=== PATIENT | male | born 1965 | race Caucasian/White ===

== ENCOUNTER 2018-06-10 14:39 | Inpatient (IN) ==
[2018-06-10] MEDS ORDERED: MIDAZOLAM HCL 1 MG/ML 2ML VIAL ONE (14:51)
[2018-06-10] MEDS ORDERED: fentaNYL citrate 100 MCG/2 ML VIAL ONE (14:51)
[2018-06-10] MEDS ORDERED: HEPARIN (PORCINE) 1000 UNIT/ML 10 ML (CATH LAB USE ONLY) ONE (14:52)
[2018-06-10] MEDS ORDERED: NITROGLYCERIN/D5W 100MCG/ML 20ML SYR ONE (14:52)
[2018-06-10] MEDS ORDERED: NiCARDipine HCL INJ 2.5 MG/ML 10 ML AMP ONE (14:52)
[2018-06-10] MEDS ORDERED: SODIUM CHLORIDE 0.9% 500 ML IV SCH (15:00)
[2018-06-10] MEDS ORDERED: HEPARIN SOD (PORCINE) 1000 UNIT/ML 10 ML VIAL ONE (15:00)
[2018-06-10] MEDS ORDERED: TICAGRELOR 90 MG TAB PO ONE (15:00)
--- NOTE | 2018-06-10 15:06 | Pre Anesthesia Assessment ---
Date of Service June 10, 2018 Pre Sedation Assessment Vital Signs Temp Pulse Resp BP Pulse Ox 06/10/18 14:42 36.4 C L 85 20 181/111 H 98 Cardiovascular RRR, no murmur, no edema Respiratory normal respiratory effort, lungs clear to auscultation Pre-Sedation Airway Assessment Smoking Status: Current every day smoker Hx Sleep Apnea: No Hx Difficult Intubation: No Short, Thick Neck: No Thyromental Distance: > or= 3.5 Finger Breadths Oral Cavity: + WNL Mallampati Class: III Procedure Planning Contraindications for Sedation: none Current Medications Reviewed: Yes Notes The planned sedation has been discussed with the patient. Informed Consent was obtained. I have identified the patient, determined the appropriateness of sedation and have assessed the patient immediately prior to the procedure. All medicine(s) and interventions are by my order.
--- NOTE | 2018-06-10 15:09 | Cardiology Consultation ---
Date of Consultation June 10, 2018 Assessment & Plan (1) ST elevation myocardial infarction (STEMI): Presentation consistent with inferior STEMI and recommend proceeding with emergent cardiac catheterization and likely primary PCI. No apparent contraindications to procedure. Discussed risks, benefits, alternatives of procedure with patient and they are willing to proceed. Given IV heparin and ticagrelor 180 mg in the ED. Further recommendations pending findings of coronary angiography. History of Present Illness History of Present Illness 53-year-old male here with acute chest pain and ECG concerning for acute KS. Patient seen emergently in the ED after heart alert activated upon arrival. Past cardiac history remarkable for reported cardiac catheterization several years ago on which reportedly had no significant disease. Cardiac risk factors include ongoing tobacco abuse, hyperlipidemia family history of premature coronary disease involving his father. Other medical issues include hypothyroidism but is on no meds. Chest pain began approximately 3.5 hours prior to arrival while at work. Describes 9 out of 10 chest pain radiating to his back, neck and left arm. Denies similar symptoms in the past. Also states that has not felt like himself for the last several days, just "feeling weak." Initially presented to urgent care with EKG showing inferior ST elevations. Brought to ED via coworker. Upon arrival here hypertensive to the 180s. EKG showed again showed sinus rhythm with inferior ST elevations. Allergies Allergy/AdvReac Type Severity Reaction Status Date / Time No Known Allergies Unverified 05/20/09 16:12 Home Medications Home Medications Medication Instructions Recorded Confirmed Type [id number] M1 20 mg OR DAILY #0 05/20/09 History Patient History Medical History HTN (hypertension) Social History Feels Safe at Home: Yes Smoking Status: Current every day smoker Review of Systems Not completed in the setting of emergent situation Physical Exam Vital Signs (Past 24 Hours): Last Vital Signs Temp 36.4 C L 06/10/18 14:42 Pulse 85 06/10/18 14:42 Resp 20 06/10/18 14:42 BP 181/111 H 06/10/18 14:42 Pulse Ox 98 06/10/18 14:55 Physical Exam: General: Comfortable, no acute distress Eyes: Sclerae anicteric, extraocular movements intact Lungs: Clear to auscultation bilaterally, no rhonchi or wheezes Cardiac: Regular rate and rhythm, no murmurs, rubs or gallops. Vascular: 2+ radial, DP and PT pulses. Abdomen: Soft, nontender, nondistended, positive bowel sounds. Extremities: Well perfused, no peripheral edema Skin: No rashes or lesions. Neuro: Nonfocal Psych: Alert orient x3, normal affect and mood (1) ST elevation myocardial infarction (STEMI) Involved coronary artery: unspecified coronary artery Qualified Code(s): I21.3 - ST elevation (STEMI) myocardial infarction of unspecified site
--- NOTE | 2018-06-10 15:14 | XRay Report ---
XR chest 1V portable HISTORY: 53 years-old Male Chest Pain acute atypical chest pain COMPARISON: Chest radiograph 05/20/2009 TECHNIQUE: Portable AP view of the chest FINDINGS: Cardiac mediastinal and hilar silhouettes are unchanged. There is no pneumothorax, pleural effusion, focal airspace consolidation or overt pulmonary edema. Bones of the chest appear grossly intact. IMPRESSION: No acute process. The above report was generated using voice recognition software. It may contain grammatical, syntax o r spelling errors. Electronically signed by: Kash Collins M.D. 06/10/2018 3:13 PM
[2018-06-10 15:16] LABS: iSTAT Creatinine 0.9 mg/dl (0.6-1.3); iSTAT Hemoglobin 14.6 g/dl (14.0-18.0); iSTAT Ionized Calcium 1.17 mmol/l (1.12-1.32); iSTAT Potassium 3.8 mEq/L (3.3-5.0)
--- NOTE | 2018-06-10 15:18 | Emergency Department Note ---
Entered by Elan Acosta acting as a scribe for History of Present Illness General Chief complaint: Cardiac Assessment Stated complaint: REFERRED BY [facility] - POSSIBLE HEART ATTACK Time Seen by Provider: 06/10/18 14:47 Source: patient Limitations: no limitations History of Present Illness Provider complaint: Chest pain Onset (ago): day(s) (2) Location: chest (left) Radiation: neck (left) and extremity (left arm) Pain Consistency: + intermittent Maximum Pain Intensity: 5 Current Pain Intensity: 1 Treatments prior to arrival: other (Aspirin) The patient is a 53 year old male who presents to the Emergency Room with complaints of intermittent chest pain that began at 1100 this morning, 3 hours and 45 minutes ago. The patient states that he first experienced chest pain on Sunday night, 2 days ago. The chest pain then presented again on Sunday morning, but resolved throughout the day. The patient got up and went to work today, and the pain returned at 1100, just under 4 hours ago. The patient had his boss take him to [employer], who performed an EKG and referred him to the ED immediately. They did give the patient Aspirin and sent him by private vehicle. He states that his pain is now 1/10 in severity. When the chest pain presents there is radiation in to the left arm and left neck. He adds that currently the left arm is more painful than the left neck. He has a history of hypertension, but no other cardiac disease. He had a clean cath in 2009. The patient's father of a heart attack at the age of 58. He denies any recent trauma. Home Medications Home Medications Medication Instructions Recorded Confirmed Type aspirin 81 mg PO DAILY 06/10/18 06/10/18 History metoprolol succinate [Toprol XL] 50 mg PO DAILY 06/10/18 06/10/18 History multivitamin 1 cap PO QAM 06/10/18 06/10/18 History Allergies Allergy/AdvReac Type Severity Reaction Status Date / Time No Known Allergies Unverified 05/20/09 16:12 Past Med/Surg History Medical History HTN (hypertension) Social History Preferred Language: [place] Communication Ability: Effective In School Suspension Coordinator Required: No Beliefs That Will Affect Care: None Current Living Situation: Alone Other Information That Helps Us Care for You: Yes Feels Safe at Home: Yes Smoking Status: Current every day smoker Hx Alcohol Use: Yes Hx Substance Use: No Review of Systems See HPI for pertinent positives & negatives. and A total of 10 systems reviewed and were otherwise negative Physical Exam Vital Signs Vital Signs - 24 hr 06/10/18 14:42 06/10/18 14:52 06/10/18 14:54 Temperature 36.4 C L Temperature Source Oral Sepsis Recent Fever Within 48 Hours No Sepsis New/Unexplained Change in Mental Status No Sepsis Action Taken by Nursing No Action Required Pulse Rate 85 81 77 Pulse Rate [Apical] Pulse Rate from SpO2 Sensor 82 77 Pulse Rhythm [Apical] Respiratory Rate 20 15 17 Respiratory Effort / Characteristics Respiratory Depth Respiratory Pattern Blood Pressure 181/111 H 166/109 H Blood Pressure [Left Arm] Blood Pressure Mean 134 128 Blood Pressure Mean [Left Arm] Blood Pressure Position [Left Arm] Pulse Oximetry 98 100 100 Oxygen Delivery Method Room Air Oxygen Flow Rate 06/10/18 14:55 06/10/18 15:00 06/10/18 15:08 Temperature Temperature Source Sepsis Recent Fever Within 48 Hours Sepsis New/Unexplained Change in Mental Status Sepsis Action Taken by Nursing Pulse Rate 90 90 Pulse Rate [Apical] Pulse Rate from SpO2 Sensor Pulse Rhythm [Apical] Respiratory Rate 16 16 Respiratory Effort / Characteristics Respiratory Depth Respiratory Pattern Blood Pressure 166/109 H Blood Pressure [Left Arm] Blood Pressure Mean Blood Pressure Mean [Left Arm] Blood Pressure Position [Left Arm] Pulse Oximetry 98 Oxygen Delivery Method Nasal Cannula Room Air Oxygen Flow Rate 2 06/10/18 17:28 Temperature 36.7 C Temperature Source Oral Sepsis Recent Fever Within 48 Hours Sepsis New/Unexplained Change in Mental Status Sepsis Action Taken by Nursing Pulse Rate Pulse Rate [Apical] 71 Pulse Rate from SpO2 Sensor Pulse Rhythm [Apical] Regular Respiratory Rate 20 Respiratory Effort / Characteristics Non-Labored Spontaneous Respiratory Depth Normal Respiratory Pattern Regular Blood Pressure Blood Pressure [Left Arm] 128/91 Blood Pressure Mean Blood Pressure Mean [Left Arm] 103 Blood Pressure Position [Left Arm] Lying Pulse Oximetry 96 Oxygen Delivery Method Room Air Oxygen Flow Rate General: Non-ill appearing middle-aged male. Mildly anxious appearing. NO respiratory distress. HEENT: Normal cephalic atraumatic. Pupils are equal round and reactive to light. Extraocular movements are intact. Oropharynx is pink with moist mucous membranes. No swelling of the mouth lips or tongue. Neck: Supple with a midline trachea. No meningeal signs or stiffness, no JVD or bruits. No Stridor. Chest: Clear to auscultation bilaterally. No wheezes or rhonchi. No increased work of breathing. Heart: regular rate and rhythm. Abdomen: Soft nontender, nondistended without rebound guarding or rigidity. Extremities: No cyanosis clubbing or edema. No calf tenderness or assymetry. Spine/Back. Non tender to palpation. No CVA tenderness Skin: Good turgor without rashes. Neurologic exam: Cranial nerves two through 12 are intact. Motor and sensation are intact and symmetrical throughout. Course 1446: The patient was evaluated in room B1, and a complete history and physical examination were performed. 1447: A HEART ALERT was called on the patient at this time. 1458: Dr. Pedro - [facility] is at bedside at this time. We discussed the case. He will take the patient to the [facility] now. 1514: I reviewed the patient's case with Dr. Adalid Medrano [facility] Hospitalist. She will evaluate the patient for further management. Administered Medications Sodium Chloride (Nss 1000ml) 1,000 mls @ 100 mls/hr IV .Q10H ALANA Stop: 06/11/18 02:59 Last Admin: 06/10/18 16:50 Dose: 100 mls/hr Documented by: [id number] Discontinued Medications Amiodarone HCl/Dextrose (Nexterone / D5w ([facility] Use Only)) Confirm Administe red Dose 150 mg .ROUTE .STK-MED ONE Stop: 06/10/18 15:29 Last Admin: 06/10/18 15:45 Dose: 150 mg Documented by: [id number] Amiodarone HCl/Dextrose (Nexterone / D5w ([facility] Use Only)) Confirm Administered Dose 360 mg .ROUTE .STK-MED ONE Stop: 06/10/18 15:33 Last Admin: 06/10/18 16:09 Dose: Not Given Documented by: [id number] Atropine Sulfate (Atropine Sulfate) Confirm Administered Dose 1 mg IV .STK-MED ONE Stop: 06/10/18 16:07 Last Admin: 06/10/18 16:09 Dose: 0.5 mg Documented by: [id number] Fentanyl Citrate (Fentanyl Citrate) Confirm Administered Dose 100 mcg .ROUTE .STK-MED ONE Stop: 06/10/18 14:52 Last Admin: 06/10/18 15:50 Dose: 50 mcg Documented by: [id number] Heparin Sodium (Porcine) (Heparin Iv Bolus ([facility] Use Only)) Confirm Administered Dose 10,000 units .ROUTE .STK-MED ONE Stop: 06/10/18 14:53 Last Admin: 06/10/18 15:51 Dose: 7,000 units Documented by: [id number] Heparin Sodium (Porcine) (Heparin Iv Bolus) Confirm Administered Dose 10,000 units .ROUTE .STK-MED ONE Stop: 06/10/18 15:01 Last Admin: 06/10/18 17:10 Dose: Not Given Documented by: [id number] Heparin Sodium/Sodium Chloride (Heparin/Nss 1000 Unit/500ml Flush Bag) Confirm Administered Dose 3,000 units IV .STK-MED ONE Stop: 06/10/18 14:53 Last Admin: 06/10/18 15:43 Dose: 3,000 units Documented by: [id number] Sodium Chloride (Nss) 500 mls @ 999 mls/hr IV .Q31M ALANA Stop: 06/10/18 15:30 Last Admin: 06/10/18 17:10 Dose: Not Given Documented by: [id number] Midazolam HCl (Versed) Confirm Administered Dose 2 mg .ROUTE .STK-MED ONE Stop: 06/10/18 14:52 Last Admin: 06/10/18 15:43 Dose: 2 mg Documented by: [id number] Nicardipine HCl (Cardene) Confirm Administered Dose 25 mg .ROUTE .STK-MED ONE Stop: 06/10/18 14:53 Last Admin: 06/10/18 15:43 Dose: 25 mg Documented by: [id number] Nitroglycerin/Dextrose (Nitroglycerin/D5w 100 Mcg/Ml 20ml Syringe) Confirm Administered Dose 2,000 mcg .ROUTE .STK-MED ONE Stop: 06/10/18 14:53 Last Admin: 06/10/18 15:44 Dose: 2,000 mcg Documented by: [id number] Ticagrelor (Brilinta) Confirm Administered Dose 180 mg PO .STK-MED ONE Stop: 06/10/18 15:01 Last Admin: 06/10/18 15:44 Dose: 180 mg Documented by: [id number] Medical Decision Making Differential Diagnosis Differential Diagnosis includes: Acute Myocardial infarction, arrhythmia, aortic dissection, electrolyte or meta bolic abnormality. Medical Records Attestation: I reviewed the patient's medical records. Home Medications Current Medication List: was personally reviewed by me Laboratory Data Result diagrams: 06/10/18 14:56 06/10/18 14:56 Lab Results 06/10/18 06/10/18 06/10/18 Range/Units 14:40 14:56 14:56 WBC 10.75 (4.8-10.8) K/uL RBC 4.68 L (4.7-6.1) M/uL Hgb 14.8 (14.0-18.0) g/dL POC Hgb (14.0-18.0) g/dl Hct 43.3 (42-52) % POC Hct (42-52) % MCV 92.5 (80-100) fL MCH 31.6 (25-34) pg MCHC 34.2 (32-36) g/dL RDW Std Deviation 46.3 (36.4-46.3) fL RDW Coeff of Musa 13.7 (11.5-14.5) % Plt Count 322 (130-400) K/uL MPV 9.7 (7.4-10.4) fL Immature Gran % (Auto) 0.5 % Neut % (Auto) 56.1 % Lymph % (Auto) 27.3 % Becker % (Auto) 11.5 % Eos % (Auto) 4.2 % Baso % (Auto) 0.4 % Immature Gran # (Auto) 0.05 H (0.00-0.02) K/uL Neut # (Auto) 6.04 (1.4-6.5) K/uL Lymph # (Auto) 2.93 (1.2-3.4) K/uL Becker # (Auto) 1.24 H (0.11-0.59) K/uL Eos # (Auto) 0.45 (0-0.5) K/uL Baso # (Auto) 0.04 (0-0.2) K/uL PT 10.2 (9.0-12.0) Seconds INR 1.0 (0.9-1.1) APTT 27.8 (21.0-31.0) Seconds PTT Ratio 1.0 Activ Coag Time Kaolin 224 H (94-140) SECONDS POC Sodium (135-144) mEq/L Sodium (136-145) mmol/L POC Potassium (3.3-5.0) mEq/L Potassium (3.5-5.1) mmol/L POC Chloride (101-112) mEq/L Chloride (98-107) mmol/L Carbon Dioxide (21-32) mmol/L POC Total CO2 (24-31) mEq/l Anion Gap (3-11) POC Anion Gap (16-25) mmol/L POC BUN (7-18) mg/dl BUN (7-18) mg/dl Creatinine (0.6-1.4) mg/dl POC Creatinine (0.6-1.3) mg/dl Est Cr Clr Drug Dosing ml/min Est GFR ( Amer) Est GFR (Non-Af Amer) BUN/Creatinine Ratio (10-20) Glucose (70-99) mg/dl POC Glucose (other) (70-99) mg/dl Calcium (8.5-10.1) mg/dl POC Ioniz Calcium Lucio (1.12-1.32) mmol/l Total Bilirubin (0.2-1) mg/dl AST (15-37) U/L ALT (12-78) U/L Alkaline Phosphatase (45-117) U/L POC Troponin I (0-0.045) ng/ml Troponin I (0-0.045) ng/ml Total Protein (6.4-8.2) gm/dl Albumin (3.4-5.0) gm/dl Globulin (2.5-4.0) gm/dl Albumin/Globulin Ratio (0.9-2) Lipase (73-393) U/L 06/10/18 06/10/18 06/10/18 Range/Units 14:56 15:01 15:03 WBC (4.8-10.8) K/uL RBC (4.7-6.1) M/uL Hgb (14.0-18.0) g/dL POC Hgb 14.6 (14.0-18.0) g/dl Hct (42-52) % POC Hct 43 (42-52) % MCV (80-100) fL MCH (25-34) pg MCHC (32-36) g/dL RDW Std Deviation (36.4-46.3) fL RDW Coeff of Musa (11.5-14.5) % Plt Count (130-400) K/uL MPV (7.4-10.4) fL Immature Gran % (Auto) % Neut % (Auto) % Lymph % (Auto) % Becker % (Auto) % Eos % (Auto) % Baso % (Auto) % Immature Gran # (Auto) (0.00-0.02) K/uL Neut # (Auto) (1.4-6.5) K/uL Lymph # (Auto) (1.2-3.4) K/uL Becker # (Auto) (0.11-0.59) K/uL Eos # (Auto) (0-0.5) K/uL Baso # (Auto) (0-0.2) K/uL PT (9.0-12.0) Seconds INR (0.9-1.1) APTT (21.0-31.0) Seconds PTT Ratio Activ Coag Time Kaolin (94-140) SECONDS POC Sodium 140 (135-144) mEq/L Sodium 140 (136-145) mmol/L POC Potassium 3.8 (3.3-5.0) mEq/L Potassium 3.9 (3.5-5.1) mmol/L POC Chloride 102 (101-112) mEq/L Chloride 104 (98-107) mmol/L Carbon Dioxide 29 (21-32) mmol/L POC Total CO2 28 (24-31) mEq/l Anion Gap 7.0 (3-11) POC Anion Gap 16.0 (16-25) mmol/L POC BUN 16 (7-18) mg/dl BUN 15 (7-18) mg/dl Creatinine 0.99 (0.6-1.4) mg/dl POC Creatinine 0.9 (0.6-1.3) mg/dl Est Cr Clr Drug Dosing 85.3 ml/min Est GFR ( Amer) 99.7 Est GFR (Non-Af Amer) 86.0 BUN/Creatinine Ratio 14.8 (10-20) Glucose 104 H (70-99) mg/dl POC Glucose (other) 106 H (70-99) mg/dl Calcium 9.5 (8.5-10.1) mg/dl POC Ioniz Calcium Lucio 1.17 (1.12-1.32) mmol/l Total Bilirubin 0.3 (0.2-1) mg/dl AST 31 (15-37) U/L ALT 34 (12-78) U/L Alkaline Phosphatase 88 (45-117) U/L POC Troponin I 0.74 H (0-0.045) ng/ml Troponin I 1.050 H* (0-0.045) ng/ml Total Protein 8.2 (6.4-8.2) gm/dl Albumin 4.1 (3.4-5.0) gm/dl Globulin 4.1 H (2.5-4.0) gm/dl Albumin/Globulin Ratio 1.0 (0.9-2) Lipase 138 (73-393) U/L ECG Data Attestation: I personally reviewed and interpreted this ECG as follows: Indication: back/shoulder pain and chest pain Rate (beats per minute): 73 Rhythm: normal sinus Findings: + ST elevation (inferiorly with reciprocal changes anteriorly and laterally) Comparison ECG Date: from (04/22/2009) Change: the following changes noted (All changes are new) Blood Pressure Blood Pressure Findings: Elevated blood pressure Blood Pressure Disposition: further management by hospitalist [facility] Narrative This patient comes in as described above. He was placed in room B1. He apparently was at a urgent care center and had an EKG consistent with acute GA so his boss brought him over here. I saw him immediately and was very concerned with his heart alert as he does have findings consistent with an acute inferior GA with reciprocal changes. We placed him in room B1. he was stable otherwise although he was hypertensive. At this point, he has minimal symptoms he has some mild left arm pain and may be 1 out of 10 pain. he is not diaphoretic. he is not hypoxemic. Multiple blood testing was obtained his electrolytes were normal on i-STAT as was his kidney function. Dr. Pedro arrived and is going to take him emergently to the [facility] for a cardiac catheterization and angiopl asty if needed. Impression & Plan ST elevation myocardial infarction (STEMI), Acute GA, inferior wall, Chest pain Discharge Plan Visit Data *Final* Discharge Date/Time: 06/10/18 15:08 Chief Complaint: Cardiac Assessment Stated Complaint: REFERRED BY [facility] - POSSIBLE HEART ATTACK ED Provider: Kevan Welch Discharge Problem: ST elevation myocardial infarction (STEMI), Acute GA, inferior wall, Chest pain Patient Disposition: Still a Patient Discharge Instructions Interventions: ED Discharge Assessment Last Done: 06/10/18 15:08 The scribe's documentation has been prepared under my direction and personally reviewed by me in its entirety. I confirm that the note above accurately reflects all work, treatment, procedures, and medical decision making performed by me.
[2018-06-10 15:21] LABS: Basophils # (auto) 0.04 K/uL (0-0.2); Basophils % (auto) 0.4 %; Eosinophils # (auto) 0.45 K/uL (0-0.5); Eosinophils % (auto) 4.2 %; Hematocrit (blood only) 43.3 % (42-52); Hemoglobin 14.8 g/dL (14.0-18.0); Immature Granulocytes # (auto) 0.05 K/uL (0.00-0.02); Immature Granulocytes % (auto) 0.5 %; Lymphocytes # (auto) 2.93 K/uL (1.2-3.4); Lymphocytes % (auto) 27.3 %; Mean Corpuscular Hgb Conc 34.2 g/dL (32-36); Mean Corpuscular Volume 92.5 fL (80-100); Mean Platelet Volume 9.7 fL (7.4-10.4); Monocytes # (auto) 1.24 K/uL (0.11-0.59); Monocytes % (auto) 11.5 %; Neutrophils # (auto) 6.04 K/uL (1.4-6.5); Neutrophils % (auto) 56.1 %; Platelet Count 322 K/uL (130-400); RDW Coefficient of Variation 13.7 % (11.5-14.5); RDW Standard Deviation 46.3 fL (36.4-46.3); Red Blood Count 4.68 M/uL (4.7-6.1); White Blood Count 10.75 K/uL (4.8-10.8)
[2018-06-10] MEDS ORDERED: AMIODARONE 150MG / 100ML D5W (CATH LAB USE ONLY) ONE (15:28)
[2018-06-10 15:29] LABS: Partial Thromboplastin Time 27.8 Seconds (21.0-31.0); Prothrombin Time 10.2 Seconds (9.0-12.0)
[2018-06-10 15:30] LABS: Albumin Level 4.1 gm/dl (3.4-5.0); BUN Creatinine Ratio 14.8 (10-20); Calcium 9.5 mg/dl (8.5-10.1); Creatinine Clr Calc Pharmacy 85.3 ml/min; Est GFR (African American) 99.7; Potassium 3.9 mmol/L (3.5-5.1)
[2018-06-10] MEDS ORDERED: AMIODARONE 360MG / 200ML D5W (CATH LAB USE ONLY) ONE (15:32)
[2018-06-10 15:38] LABS: Bilirubin,Total 0.3 mg/dl (0.2-1); Globulin 4.1 gm/dl (2.5-4.0); Total Protein 8.2 gm/dl (6.4-8.2); Troponin I 1.05 ng/ml (0-0.045)
--- NOTE | 2018-06-10 15:55 | Post Anesthesia Assessment ---
Date of Service June 10, 2018 Post Sedation Assessment Vital Signs Temp Pulse Resp BP Pulse Ox 06/10/18 15:08 90 16 166/109 H 06/10/18 15:00 90 16 06/10/18 14:55 98 06/10/18 14:54 77 17 100 06/10/18 14:52 81 15 166/109 H 100 06/10/18 14:42 36.4 C L 85 20 181/111 H 98 Recovery Score Activity: Moves 4 extremities Respiration: Deep Breath/Cough Circulation: +/-20% PreAnes Value Consciousness: Fully Awake Oxygen Saturation: O2 needed for >90% Discharge Sedation Level of Care: Fast Track Phase II Post Sedation Plan On clinical assessment, the patient appears to have tolerated the sedation without complications. Patient is recovering as anticipated. Patient will continue to be monitored by nursing and may be discharged when sedation discharge criteria are met per below protocol. Upon Completions of procedure and additional 15 minutes continue every 5 minute vital signs and the P.A.R. score; then discharge to a Phase I or Fast Track to Phase II per the following guidelines: * Discharge Patient to appropriate Phase II area if PAR is 8 or greater or return to pre- procedure baseline. The post - procedure orders will be as directed. * If PAR score is less than 8 or not return to pre-procedure baseline then patient will follow Phase I monitoring till PAR is reached for Phase II. The Phase I may be done in procedure room or may call to secure a Phase I area. * If naloxone or flumazenil are used for reversal, hold in Phase I for continued monitoring from when last reversal dose was given for a minimum of 60 minutes or longer pending the nurse and/or physician discretion of patient condition before discharge to Phase II. Please call the Sedation Physician to re-evaluate and complete post-note for discharge to Phase II area. Do NOT discharge from procedure sedation or Phase 1 until post- sedation evaluation note is complete by procedure /sedation MD Sedation Discharge Instructions to be given to the patient at discharge to home.
[2018-06-10] MEDS ORDERED: ONDANSETRON INJ 2 MG/ML 2 ML VIAL IV PRN (15:57)
[2018-06-10] MEDS ORDERED: ICU PROTOCOL FOR HYPERGLYCEMIA PRN (16:02)
[2018-06-10] MEDS ORDERED: ATROPINE SULFATE 0.1 MG/ML 10ML SYR IV ONE (16:06)
--- NOTE | 2018-06-10 16:17 | Cardiac Catheterization ---
Cardiac Cath Procedure Full Procedure Date June 10, 2018 Pre-Procedure Diagnosis Pre-Procedure Diagnosis: STEMI AUC Score AUC Score: 9 Post-Procedure Diagnosis Post-Procedure Diagnosis: Severe CAD, Successful PCI and Normal Intracardiac Pressures Procedure(s) Performed Procedure(s) Performed: Coronary Angiography, Left Heart Cath, LV Angiography and Drug Eluting Stent Scale Technician Jadiel Pedro MD Employee Health Rn(s) Marybel Estimated Blood Loss Estimated Blood Loss: 15 Medication(s) Medication(s): Fentanyl, Heparin, Lidocaine 1%, Nicardipine, Nitroglycerin and Versed Medication(s): Ticagrelor Summary of Findings Indication: STEMI/Heart Alert Access: 6 Fr right radial artery Catheters: Ikari 3.5 guide, pigtail Findings: LM -short, luminal irregularities LAD -moderate caliber vessel, diffuse ostial/proximal disease 70-80% just prior to first septal/diagonal takeoff, 40-50% mid segment, distal luminal irregularities as wraps around the apex. Gives off 3 diagonals without significant disease Circumflex -moderate caliber vessel, no significant disease RCA -100% acute earlymid occlusion, after flow reestablished severe diffuse disease involving whole mid RCA. Prior to intervention robust left to right collaterals to PLB, PDA. LVEDP -7 -- PCI -- Antithrombotic therapy: Heparin, ticagrelor Procedure: RCA cannulated with Ikari 3.5 guide Senior Geologist 50 wire passed across lesion into distal vessel Mid RCA lesion predilated with 2.5 compliant balloon Dilated lesion stented with 2 drug-eluting stents (3.5 x 15, 3.0 x 38 mm Xience Betsy) Stents post-dilated with 3.5 noncompliant balloon IC vasodilators administered for spasm Post procedure STEPHANIE 3 flow, stent well expanded with minimal residual stenosis and no apparent cardiac complications. Arterial Closure: TR band Summary: 1. Inferior STEMI/acute on chronic early-mid RCA occlusion with initial left to right collaterals 2. Severe non-culprit coronary artery disease -Diffuse ostial/proximal LAD 70-80% 3. Normal intracardiac filling pressure 4. Successful PCI of diffuse mid RCA disease with 2 overlapping drug-eluting stents (3.5 x 15, 3.0 x 38 mm Xience Betsy). Recommendations: Admit to ICU for continued monitoring Loaded with ticagrelor 180 mg Continue dual-antiplatelet therapy for at least 1 year. Trend troponins until peak, Check Echo Uptitrate beta-bk/CHRISTINE as BP allows High-dose statin Consult cardiac Rehab Plan for staged PCI of LAD later in hospitalization. Hemodynamics Rest Ao:: 145/79/107 Final Ao: 106/67/85 LV: 101/7 Recommendations Recommendations: PCI without planned CABG Specimens Specimens: None Radiation Exposure (mGy) 1409 Contrast (mls) 125 Fluids (cc crystalloids) Fluids (cc crystalloids): 166 Drains Drains: None Anesthesia Moderate Procedural Complication(s) None Disposition ICU ACC Data: Cuff Stitcher Cardiac Status Clinical evaluation leading to the procedure CAD Presenation: STEMI Anginal Classification: CCS IV Heart Failure: No Cardiogenic Shock within 24 Hours: No Cardiac Arrest within 24 Hours: No Imaging Studies Past 6 Months: No Stress Studies Past 6 Months: No STEMI OR Non-STEMI Symptom Onset Date: 06/10/18 Symptom Onset Time: 11:00 Diagnostic Physicians Name: Jadiel Pedro MD Status: Emergency Closure Device Percutaneous Entry Location: Radial Closure Device: Radial Band Recommendations: PCI without planned CABG PCI Indication: Immediate PCI for STEMI First Noted: First EKG Lesion Segment Name: mid RCA Culprit Artery: Yes Stenosis Prior to Rx (%): 100 Chronic Total Occlusion: No IVUS: No FFR: No Pre-Procedure STEPHANIE Flow: 0 Previously Treated Lesion: No Lesion Complexity: Non-High/Non-C Lesion Length (mm): 40 Thrombus Present: Yes Bifurcation Lesion: No Guidewire Across Lesion: Stenosis Post-Procedure (%): 0 Post-Procedure STEPHANIE Flow: 3 Devices(s) Deployed: Yes Yes Intraprocedure Events Significant Disection: No Perforation: No
[2018-06-10] MEDS ORDERED: SODIUM CHLORIDE 0.9% 1000ML 1,000 ML IV SCH (17:00)
[2018-06-10] MEDS ORDERED: LORazepam 1 MG TAB PO PRN (17:43)
--- NOTE | 2018-06-10 17:54 | History & Physical Report ---
Date of Service June 10, 2018 Assessment & Plan (1) Acute MN, inferior wall: (2) S/P coronary artery stent placement: This is a 53-year-old male with a PMH of HTN, HLD and tobacco use disorder who presented with chest pain that started this morning and was found to have an acute inferior MN. -Inferior STEMI/acute on chronic early-mid RCA occlusion -S/p CHINMAY x 2 to RCA -Feeling well post-procedure -ICU nursing monitoring R wrist hematoma -Loaded with ticagrelor. Plan to continue dual antiplatelet therapy with ticagrelor and baby aspirin for at least 1 year -Continue trending troponins, 2D echo pending -Still with diffuse ostial/proximal LAD 70-80%. Possible stent to LAD later this week -Lipids, a1c in AM -Started on Lopressor, Lisinopril, Lipitor (3) HTN (hypertension): Started on Lopressor, Lisinopril -Normotensive now. Will be uptitrated as tolerated (4) HLD (hyperlipidemia): Fasting lipid panel in AM -Started on high dose statin (5) Tobacco use disorder: Has smoked 0.25-1 ppd of cigarettes for the past 30 years -Discussed importance of cessation, patient is agreeable to try (6) Heavy alcohol use: Drinks 2-5 beers nightly, last drink 3 days ago -At risk protocol PRN for withdrawal Code status: FULL PCP: No PCP. Will need to establish care with PCP upon discharge. Follows with Dr. Gilmore (cardio) in [place]. Dispo: Admitted to ICU. Discharge planning ordered. Patient seen in collaboration with Dr. Galloway. Please see addendum. Will be followed by Dr. Matute for remainder of admission. History of Present Illness Chief Complaint: chest pain, inferior MN s/p stent placement Primary Care Provider: NO PCP This is a 53-year-old male with a PMH of HTN, HLD and tobacco use disorder who presented with chest pain that started this morning. Patient has been experiencing intermittent chest pain over the weekend but it would go away with rest. This morning at work, patient developed worsened chest pain with radiation to back, neck and left arm. Coworker drove him to urgent care, where he had an EKG that was concerning for STEMI and was directed to emergency room. A heart alert was called due to findings consistent with an inferior STEMI and patient was found to have severe CAD and is s/p CHINMAY x [address] 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 Patient is feeling well post procedure. Denies any chest pain or shortness of breath. Is tolerating dinner without nausea, vomiting or abdominal pain. Denies any previous episodes of chest pain similar to this. Has smoked 0.25-1 ppd of cigarettes for the past 30 years. + family history of CAD, with Dad passing away from MN in late 50s. Denies fever, chills, lightheadedness, headache, chest pain, palpitations, shortness of breath, nausea, vomiting, abdominal pain, dysuria, diarrhea or constipation. Allergies Allergy/AdvReac Type Severity Reaction Status Date / Time No Known Allergies Unverified 05/20/09 16:12 Home Medications Home Medications Medication Instructions Recorded Confirmed Type aspirin 81 mg PO DAILY 06/10/18 06/10/18 History metoprolol succinate [Toprol XL] 50 mg PO DAILY 06/10/18 06/10/18 History multivitamin 1 cap PO QAM 06/10/18 06/10/18 History Past Med/Surg History Medical History HTN (hypertension) (Chronic) HLD (hyperlipidemia) (Chronic) Tobacco use disorder (Chronic) Surgical History S/P tonsillectomy and adenoidectomy (Resolved) Social History Preferred Language: Korean Communication Ability: Effective Cable Strander Required: No Beliefs That Will Affect Care: None Current Living Situation: Alone Other Information That Helps Us Care for You: Yes Feels Safe at Home: Yes Smoking Status: Current every day smoker Hx Alcohol Use: Yes (2-5 beers daily ) Hx Substance Use: No Review of Systems Constitutional: no fever, no chills and no weakness Eyes: no worsening vision Ear, Nose, Mouth, Throat: no nasal congestion and no sore throat Respiratory: no cough and no dyspnea Cardiovascular: no palpitations and no edema Gastrointestinal: no abdominal pain, no nausea, no vomiting and no change in stools Genitourinary (Male): no dysuria Musculoskeletal: no muscle weakness Integumentary: no rash and no change in skin color Neurologic: no localized weakness, no seizure-like activity and no headache(s) Psychiatric: no behavioral changes Physical Exam Vital Signs (Past 24 Hours): Last Vital Signs Temp 36.7 C 06/10/18 17:28 Pulse 71 06/10/18 17:28 Resp 20 06/10/18 17:28 BP 128/91 06/10/18 17:28 Pulse Ox 96 06/10/18 17:28 Physical Exam: General Appearance: WD/WN, no apparent distress, resting comfortably Head: normocephalic, atraumatic Eyes: normal inspection, PERRL, EOMI ENT: hearing grossly normal, pharynx normal (moist mucous membranes) Neck: supple, no JVD, no adenopathy Respiratory/Chest: lungs clear to auscultation. No wheezes, rales or rhonci. No respiratory distress or accessory muscle use Cardiovascular: regular rate, rhythm, no murmur, normal peripheral pulses Abdomen/GI: normal bowel sounds, soft, non-tender to palpation Extremities/Musculoskelatal: Small R wrist hematoma, no active bleeding. No calf tenderness, normal capillary refill, no pedal edema Neurologic/Psych: alert, normal mood/affect, oriented x 3 Skin: normal color, warm/dry Results & Data Laboratory Results Short CBC 06/10/18 Range/Units 14:56 WBC 10.75 (4.8-10.8) K/uL Hgb 14.8 (14.0-18.0) g/dL Hct 43.3 (42-52) % Plt Count 322 (130-400) K/uL BMP 06/10/18 14:56 Sodium 140 Potassium 3.9 Chloride 104 Carbon Dioxide 29 BUN 15 Creatinine 0.99 Glucose 104 H Calcium 9.5 Cardiac Enzymes 06/10/18 Range/Units 14:56 Troponin I 1.050 H* (0-0.045) ng/ml Liver Function 06/10/18 Range/Units 14:56 Total Bilirubin 0.3 (0.2-1) mg/dl AST 31 (15-37) U/L ALT 34 (12-78) U/L Alkaline Phosphatase 88 (45-117) U/L Albumin 4.1 (3.4-5.0) gm/dl Diagnostic Findings CXR: IMPRESSION: No acute process. ECG Findings: + ST elevation (inferior leads ) Supervising Physician Co-Signing Physician Notes HISTORY: Record reviewed. Patient interviewed and examined in his room. Care coordinated with Lou Cordoba PA-C. Please refer to her documentation for patient's history. Briefly, 53 YO male who presented to ED with inferior STEMI. Heart Alert called. Cath demonstrated 100% RCA occlusion and 70-80% LAD lesion. 2 drug eluting stents placed in RCA. Pain-free in ICU after procedure. EXAM: General- no distress Lungs- clear to auscultation; no respiratory distress Cardiovascular- RRR; no murmur; no gallop; no JVD; no pretibial edema Abdomen- + bowel sounds, soft, nontender Extremities- hematoma right radial cath site; no cyanosis; no calf tenderness Neuro- alert, oriented Skin- warm & dry DATA: Troponin I 1.050. Other lab studies as noted. Chest x-ray negative. EKG performed at 1455 reviewed and demonstrated NSR at 73 / minute, LVH, inferior ST elevation, lateral ST depression. ASSESSMENT AND PLAN: Inferior STEMI, s/p PCI of RCA with drug-eluting stents. Receiving dual anti-platelet therapy, metoprolol, lisinopril, statin. Lipid profile, echo ordered. PCI of LAD recommended by Cardiology. Please refer to MEGAN Cordoba's documentation for discussion of other issues.
--- NOTE | 2018-06-10 19:32 | Critical Care Consultation ---
Date of Consultation June 10, 2018 Assessment & Plan (1) Admitted to intensive care unit: Reason Critically Ill: 53-year-old male with acute inferior STEMI status post PTCA with CHINMAY x2 to the RCA. NEURO - * CAM ICU: NEGATIVE * Heavy EtOH Use: * CIWA protocol in place. CARDIAC/VASCULAR - * Acute Inferior STEMI s/p PTCA w/ DESx2 to the RCA: * Received Heparin and Brilinta. * Uneventful cath. * 60-70% stenosis of the LAD - plan for possible intervention during stay. * AM Echo ordered. * Trend Troponins. * ASCVD per typical. * EKG for any c/o chest pain. * EKG: * Pre Cath - NSR 75bpm w/ ST elevations in inferior leads. QTc 434ms. * Post Cath - NSR 70bpm w/ T-wave inversions in III/aVF, Resolve of previous inferior ST Elevations. QTc 432ms. * Monitor on telemetry. RESPIRATORY - * Significant Smoking history: * Encourage smoking cessation. * Supplemental O2 PRN. GI/NUTRITION - * AHA Diet. * Prophylaxis: Protonix RENAL/LYTES - * No significant electrolyte derangements. * Monitor for any c/o NARGIS s/p IV Contrast media. * IVF: NSS 100mL/hr - * No concerns at this time. ENDO - * No h/o DM or Thyroid Dz. * BSGs per unit protocol. ISS --> gtt per unit policy. HEME - * Stable H&H: * Monitor for bleeding s/p Heparin/Brilinta. ID - * No c/o infectious contribution at this time. LINES/IV ACCESS - * PIVs x2 * TR Band to the RIGHT Radial. DVT PROPHYLAXIS - * Hold on chemoprophylaxis 2/2 above. Address as needed. * SCDs I have personally spent 35 minutes of critical care time in the direct management of this patient. This is a life/limb threatening event. This includes time spent evaluating patient, direct bedside care, chart review, placing orders, interpretation of diagnostic studies, discussion with consultants, patient, and family members, as well as other required patient management activities. This time is exclusive of all separately billable procedures, and teaching time and separate from and in addition to any other critical care service time. Thank you for allowing us to participate in the care of this patient. Please refer to my attending physician's documentation for any further recommendations. (2) ST elevation myocardial infarction (STEMI): (3) Acute KS, inferior wall: (4) S/P coronary artery stent placement: (5) HTN (hypertension): (6) HLD (hyperlipidemia): (7) Heavy alcohol use: (8) Tobacco use disorder: Supervising Physician Co-Signing Physician Notes I have personally evaluated and examined this patient. I agree with assessment and plan of Tammie Santoro PA-C. History of Present Illness Attending Physician: Apollo Galloway MD Patient is a 53-year-old male with a significant past medical history of hypertension and heavy smoking use who had been experiencing waxing and waning chest pain since Sunday night. Today, while at work, he developed intense central chest pain with radiation to his jaw and LEFT arm. He was initially taken to an urgent care and subsequently directed to the emergency department where a code heart alert was called for an acute inferior STEMI. He was loaded with heparin and taken immediately to the catheterization suite where he underwent PTCA with CHINMAY x2 to the RCA for an acute 100% mid occlusion. Patient was also found to have a 60-70% stenosis of the LAD which, per cardiology, will be addressed during his stay. Post intervention, the patient is completely chest pain-free at this time. He had an uneventful catheterization. On evaluation in the ICU, the patient is awake, alert, and oriented. He denies any chest pain at this time rating his discomfort as 0/10. He denies any current headaches, dizziness, lightheadedness, chest pain, palpitations, shortness of breath, nausea, vomiting, abdominal discomfort, claudication, or numbness/weakness to the extremities. Allergies Allergy/AdvReac Type Severity Reaction Status Date / Time No Known Allergies Unverified 05/20/09 16:12 Home Medications Home Medications Medication Instructions Recorded Confirmed Type aspirin 81 mg PO DAILY 06/10/18 06/10/18 History metoprolol succinate [Toprol XL] 50 mg PO DAILY 06/10/18 06/10/18 History multivitamin 1 cap PO QAM 06/10/18 06/10/18 History Patient History Medical History HTN (hypertension) (Chronic) HLD (hyperlipidemia) (Chronic) Tobacco use disorder (Chronic) Surgical History S/P tonsillectomy and adenoidectomy (Resolved) Social History Communication Ability: Effective Beliefs That Will Affect Care: None Current Living Situation: Alone Other Information That Helps Us Care for You: Yes Feels Safe at Home: Yes Smoking Status: Current every day smoker Hx Alcohol Use: Yes (2-5 beers daily ) Hx Substance Use: No Review of Systems A complete 10 point review of systems was reviewed with the patient with pertinent positives and negatives as per history of present illness. All else were negative. Physical Exam Vital Signs (Past 24 Hours): Last Vital Signs Temp 36.7 C 06/10/18 17:28 Pulse 65 06/10/18 19:00 Resp 17 06/10/18 18:30 BP 128/85 06/10/18 19:00 Pulse Ox 98 06/10/18 19:00 Physical Exam: VITAL SIGNS - Vital signs and nursing notes were reviewed. GENERAL - 53-year-old male appearing his stated age who is in no acute distress. Communicates well with provider and answers questions appropriately. SKIN - Without rashes. HEAD - NC/AT. EYES - PERRL with EOMI bilaterally. Sclera anicteric. Palpebral conjunctiva pink and moist with no injection noted. EARS - No deformities of external structures noted on gross examination bilaterally. NOSE - Midline and without cyanosis. No epistaxis or purulent drainage noted. Septum midline without deviation or septal hematoma noted. MOUTH/OROPHARYNX - Without perioral cyanosis. NECK - Neck with FROM. No nuchal rigidity. LUNGS - Chest wall symmetric without accessory muscle use, intercostals retr actions, or central cyanosis. Normal vesicular breath sounds CTA B/L. No wheezes, rales, or rhonchi appreciated. CARDIAC - RRR with S1/S2. No murmur, rubs, or gallops appreciated. ABDOMEN - Abdominal contour flat without pulsations or visible masses. BS normoactive all four quadrants. No tenderness, palpable masses, hepatosplenomegaly, or ascites noted. EXTREMITIES - No clubbing or peripheral cyanosis. No pretibial edema present. +3/5 radial, posterior tibial, and dorsalis pedis pulses palpated throughout. +5/5 strength noted in UE/LE bilaterally. NEUROLOGIC - Cranial nerves II through XII grossly intact. Sensory intact to light touch throughout. PSYCH - A&Ox3 and cooperates fully with examiner. Pt is very pleasant and interacts well with examiner. (1) ST elevation myocardial infarction (STEMI) Involved coronary artery: unspecified coronary artery Qualified Code(s): I21.3 - ST elevation (STEMI) myocardial infarction of unspecified site
[2018-06-10] MEDS: METOPROLOL TARTRATE 25 MG TAB PO SCH (20:13)
[2018-06-10] MEDS: TICAGRELOR 90 MG TAB PO SCH (23:04)
[2018-06-11 04:30] LABS: Basophils # (auto) 0.03 K/uL (0-0.2); Basophils % (auto) 0.3 %; Eosinophils # (auto) 0.42 K/uL (0-0.5); Eosinophils % (auto) 3.7 %; Hematocrit (blood only) 37.5 % (42-52); Hemoglobin 12.7 g/dL (14.0-18.0); Immature Granulocytes # (auto) 0.04 K/uL (0.00-0.02); Immature Granulocytes % (auto) 0.4 %; Lymphocytes # (auto) 2.69 K/uL (1.2-3.4); Lymphocytes % (auto) 23.7 %; Mean Corpuscular Hgb Conc 33.9 g/dL (32-36); Mean Corpuscular Volume 92.6 fL (80-100); Mean Platelet Volume 9.6 fL (7.4-10.4); Monocytes # (auto) 1.21 K/uL (0.11-0.59); Monocytes % (auto) 10.7 %; Neutrophils # (auto) 6.95 K/uL (1.4-6.5); Neutrophils % (auto) 61.2 %; Platelet Count 261 K/uL (130-400); RDW Coefficient of Variation 13.7 % (11.5-14.5); RDW Standard Deviation 46.6 fL (36.4-46.3); Red Blood Count 4.05 M/uL (4.7-6.1); White Blood Count 11.34 K/uL (4.8-10.8)
[2018-06-11 04:55] LABS: BUN Creatinine Ratio 15.1 (10-20); Calcium 7.9 mg/dl (8.5-10.1); Creatinine Clr Calc Pharmacy 93.3 ml/min; Est GFR (African American) 111.8; Est GFR (Non-African American) 96.5; Potassium 3.9 mmol/L (3.5-5.1); Troponin I 33.5 ng/ml (0-0.045)
[2018-06-11 05:36] LABS: Estimated Average Glucose 120 mg/dl; Hemoglobin A1C 5.8 % (4.5-5.6)
--- NOTE | 2018-06-11 07:20 | Critical Care Progress Note ---
Date of Service June 11, 2018 Assessment & Plan (1) Admitted to intensive care unit: Reason Critically Ill: 53-year-old male here for acute inf stemi s/p PTCA with DESx2 to the RCA plan for repeat cath tomorrow to stent remaining vessels. Past medical history significant for EtOH abuse, HTN, HLD, Current Smoker. Neuro: -CAM ICU: NEGATIVE -Hx of Heavy EtOH use, ciwa Cardiac: -acute inf stemi s/p PTCA with DESx2 to the RCA -70% stenosis of the LAD for cath with Dr. Pedro tomorrow -f/u echo -f/u troponins -prn ECG chest pain -Monitor tele Respiratory: -Smoking Cessation -O2 prn GI: -Heart Healthy diet RENAL/LYTES: -No significant electrolyte derangement. -Replace lytes as needed. -Cr 0.90 ENDO: -ICU hyperglycemia protocol HEME: -HGB 12.7 down from 14.8 pre op, no si/sx of anemia, or bleed -Continue to trend CBC ID: -No concerns for infection at this point. -Monitor fever curve. -Leukocytosis 2/2 to recent surgical procedure INTEGUMENTARY: -radial site clean dry and intact LINES/IV ACCESS: -PIVs x2 intact. DVT PROPHYLAXIS: - Ambulation Dispo:ICU for monitoring until cath tomorrow Thank you for allowing us to be part of this patient's care. Please refer to Dr. Soriano's documentation for any further recommendations. (2) ST elevation myocardial infarction (STEMI): (3) Acute ME, inferior wall: (4) S/P coronary artery stent placement: (5) HTN (hypertension): (6) HLD (hyperlipidemia): (7) Heavy alcohol use: (8) Tobacco use disorder: Supervising Physician Co-Signing Physician Notes Dr. Cordoba was resident physician during care of patient. I separately evaluated patient for witt portions of the history and the exam. I was present during the critical portion of medical decision making, and I discussed the case with the resident. I generally agree with the findings and plan. Patient is doing well, I discussed the case in multidisciplinary rounds and with Dr. Pedro. Anticipate cardiac catheterization tomorrow for significant lesion in left anterior descending artery. Subjective Pt laying in bed this morning s/p echo when I arrived. Pt did well overnight, no acute concerns. He is tolerating his diet, voiding, stooling, and sleeping appropriately. Pt is concerned about his prognosis and concerned he will . Attempted to evp general counsel the pt of lifestyle changes however he was not interested. Answered all questions, no further concerns at present. Physical Exam Vital Signs (Past 24 Hours): Last Vital Signs Temp 37 C 06/11/18 00:00 Pulse 63 06/11/18 06:01 Resp 20 06/10/18 23:07 BP 104/70 06/11/18 06:01 Pulse Ox 95 06/11/18 06:01 Physical Exam: Gen: NAD, WD/WN ENMT: EOMI, AT/NC Neck: Trachea midline, normal to visual inspection Resp: CTAB/L Cards: RRR, did not appreciate any MRG. Nl S1/S2 GI: Soft, non distended, nontender. Tolerating diet MSK: Moves all extremities Skin: Radial site clean dry and intact Psych: AAOx3, gaurded, no si/sx of EtOH withdrawal Results & Data Laboratory Results 06/11/18 04:22 06/11/18 04:22 06/11/18 06/11/18 06/11/18 Range/Units 04:22 04:22 04:22 WBC 11.34 H (4.8-10.8) K/uL RBC 4.05 L (4.7-6.1) M/uL Hgb 12.7 L (14.0-18.0) g/dL POC Hgb (14.0-18.0) g/dl Hct 37.5 L (42-52) % POC Hct (42-52) % MCV 92.6 (80-100) fL MCH 31.4 (25-34) pg MCHC 33.9 (32-36) g/dL RDW Std Deviation 46.6 H (36.4-46.3) fL RDW Coeff of Musa 13.7 (11.5-14.5) % Plt Count 261 (130-400) K/uL MPV 9.6 (7.4-10.4) fL Immature Gran % (Auto) 0.4 % Neut % (Auto) 61.2 % Lymph % (Auto) 23.7 % [place] % (Auto) 10.7 % Eos % (Auto) 3.7 % Baso % (Auto) 0.3 % Immature Gran # (Auto) 0.04 H (0.00-0.02) K/uL Neut # (Auto) 6.95 H (1.4-6.5) K/uL Lymph # (Auto) 2.69 (1.2-3.4) K/uL [place] # (Auto) 1.21 H (0.11-0.59) K/uL Eos # (Auto) 0.42 (0-0.5) K/uL Baso # (Auto) 0.03 (0-0.2) K/uL PT (9.0-12.0) Seconds INR (0.9-1.1) APTT (21.0-31.0) Seconds PTT Ratio Activ Coag Time Kaolin (94-140) SECONDS POC Sodium (135-144) mEq/L Sodium 139 (136-145) mmol/L POC Potassium (3.3-5.0) mEq/L Potassium 3.9 (3.5-5.1) mmol/L POC Chloride (101-112) mEq/L Chloride 108 H (98-107) mmol/L Carbon Dioxide 27 (21-32) mmol/L POC Total CO2 (24-31) mEq/l Anion Gap 4.0 (3-11) POC Anion Gap (16-25) mmol/L POC BUN (7-18) mg/dl BUN 14 (7-18) mg/dl Creatinine 0.90 (0.6-1.4) mg/dl POC Creatinine (0.6-1.3) mg/dl Est Cr Clr Drug Dosing 93.3 ml/min Est GFR ( Amer) 111.8 Est GFR (Non-Af Amer) 96.5 BUN/Creatinine Ratio 15.1 (10-20) Glucose 97 (70-99) mg/dl POC Glucose (70-99) POC Glucose (other) (70-99) mg/dl Estimat Average Glucose 120 mg/dl Hemoglobin A1c 5.8 H (4.5-5.6) % Calcium 7.9 L D (8.5-10.1) mg/dl POC Ioniz Calcium Lucio (1.12-1.32) mmol/l Total Bilirubin (0.2-1) mg/dl AST (15-37) U/L ALT (12-78) U/L Alkaline Phosphatase (45-117) U/L POC Troponin I (0-0.045) ng/ml Troponin I 33.500 H* (0-0.045) ng/ml Total Protein (6.4-8.2) gm/dl Albumin (3.4-5.0) gm/dl Globulin (2.5-4.0) gm/dl Albumin/Globulin Ratio (0.9-2) Triglycerides 157 H (0-150) mg/dl Cholesterol 192 (0-200) mg/dl LDL Cholesterol, Calc 118 mg/dl VLDL Cholesterol, Calc 31 mg/dl HDL Cholesterol 43 mg/dl Cholesterol/HDL Ratio 5 Lipase (73-393) U/L Nasal Screen MRSA (PCR) (Negative) 06/10/18 06/10/18 06/10/18 Range/Units 21:53 21:52 16:16 WBC (4.8-10.8) K/uL RBC (4.7-6.1) M/uL Hgb (14.0-18.0) g/dL POC Hgb (14.0-18.0) g/dl Hct (42-52) % POC Hct (42-52) % MCV (80-100) fL MCH (25-34) pg MCHC (32-36) g/dL RDW Std Deviation (36.4-46.3) fL RDW Coeff of Musa (11.5-14.5) % Plt Count (130-400) K/uL MPV (7.4-10.4) fL Immature Gran % (Auto) % Neut % (Auto) % Lymph % (Auto) % [place] % (Auto) % Eos % (Auto) % Baso % (Auto) % Immature Gran # (Auto) (0.00-0.02) K/uL Neut # (Auto) (1.4-6.5) K/uL Lymph # (Auto) (1.2-3.4) K/uL [place] # (Auto) (0.11-0.59) K/uL Eos # (Auto) (0-0.5) K/uL Baso # (Auto) (0-0.2) K/uL PT (9.0-12.0) Seconds INR (0.9-1.1) APTT (21.0-31.0) Seconds PTT Ratio Activ Coag Time Kaolin (94-140) SECONDS POC Sodium (135-144) mEq/L Sodium (136-145) mmol/L POC Potassium (3.3-5.0) mEq/L Potassium (3.5-5.1) mmol/L POC Chloride (101-112) mEq/L Chloride (98-107) mmol/L Carbon Dioxide (21-32) mmol/L POC Total CO2 (24-31) mEq/l Anion Gap (3-11) POC Anion Gap (16-25) mmol/L POC BUN (7-18) mg/dl BUN (7-18) mg/dl Creatinine (0.6-1.4) mg/dl POC Creatinine (0.6-1.3) mg/dl Est Cr Clr Drug Dosing ml/min Est GFR ( Amer) Est GFR (Non-Af Amer) BUN/Creatinine Ratio (10-20) Glucose (70-99) mg/dl POC Glucose 99 (70-99) POC Glucose (other) (70-99) mg/dl Estimat Average Glucose mg/dl Hemoglobin A1c (4.5-5.6) % Calcium (8.5-10.1) mg/dl POC Ioniz Calcium Lucio (1.12-1.32) mmol/l Total Bilirubin (0.2-1) mg/dl AST (15-37) U/L ALT (12-78) U/L Alkaline Phosphatase (45-117) U/L POC Troponin I (0-0.045) ng/ml Troponin I 39.800 H* (0-0.045) ng/ml Total Protein (6.4-8.2) gm/dl Albumin (3.4-5.0) gm/dl Globulin (2.5-4.0) gm/dl Albumin/Globulin Ratio (0.9-2) Triglycerides (0-150) mg/dl Cholesterol (0-200) mg/dl LDL Cholesterol, Calc mg/dl VLDL Cholesterol, Calc mg/dl HDL Cholesterol mg/dl Cholesterol/HDL Ratio Lipase (73-393) U/L Nasal Screen MRSA (PCR) Negative (Negative) 06/10/18 06/10/18 06/10/18 Range/Units 15:03 15:01 14:56 WBC (4.8-10.8) K/uL RBC (4.7-6.1) M/uL Hgb (14.0-18.0) g/dL POC Hgb 14.6 (14.0-18.0) g/dl Hct (42-52) % POC Hct 43 (42-52) % MCV (80-100) fL MCH (25-34) pg MCHC (32-36) g/dL RDW Std Deviation (36.4-46.3) fL RDW Coeff of Musa (11.5-14.5) % Plt Count (130-400) K/uL MPV (7.4-10.4) fL Immature Gran % (Auto) % Neut % (Auto) % Lymph % (Auto) % [place] % (Auto) % Eos % (Auto) % Baso % (Auto) % Immature Gran # (Auto) (0.00-0.02) K/uL Neut # (Auto) (1.4-6.5) K/uL Lymph # (Auto) (1.2-3.4) K/uL [place] # (Auto) (0.11-0.59) K/uL Eos # (Auto) (0-0.5) K/uL Baso # (Auto) (0-0.2) K/uL PT (9.0-12.0) Seconds INR (0.9-1.1) APTT (21.0-31.0) Seconds PTT Ratio Activ Coag Time Kaolin (94-140) SECONDS POC Sodium 140 (135-144) mEq/L Sodium 140 (136-145) mmol/L POC Potassium 3.8 (3.3-5.0) mEq/L Potassium 3.9 (3.5-5.1) mmol/L POC Chloride 102 (101-112) mEq/L Chloride 104 (98-107) mmol/L Carbon Dioxide 29 (21-32) mmol/L POC Total CO2 28 (24-31) mEq/l Anion Gap 7.0 (3-11) POC Anion Gap 16.0 (16-25) mmol/L POC BUN 16 (7-18) mg/dl BUN 15 (7-18) mg/dl Creatinine 0.99 (0.6-1.4) mg/dl POC Creatinine 0.9 (0.6-1.3) mg/dl Est Cr Clr Drug Dosing 85.3 ml/min Est GFR ( Amer) 99.7 Est GFR (Non-Af Amer) 86.0 BUN/Creatinine Ratio 14.8 (10-20) Glucose 104 H (70-99) mg/dl POC Glucose (70-99) POC Glucose (other) 106 H (70-99) mg/dl Estimat Average Glucose mg/dl Hemoglobin A1c (4.5-5.6) % Calcium 9.5 (8.5-10.1) mg/dl POC Ioniz Calcium Lucio 1.17 (1.12-1.32) mmol/l Total Bilirubin 0.3 (0.2-1) mg/dl AST 31 (15-37) U/L ALT 34 (12-78) U/L Alkaline Phosphatase 88 (45-117) U/L POC Troponin I 0.74 H (0-0.045) ng/ml Troponin I 1.050 H* (0-0.045) ng/ml Total Protein 8.2 (6.4-8.2) gm/dl Albumin 4.1 (3.4-5.0) gm/dl Globulin 4.1 H (2.5-4.0) gm/dl Albumin/Globulin Ratio 1.0 (0.9-2) Triglycerides (0-150) mg/dl Cholesterol (0-200) mg/dl LDL Cholesterol, Calc mg/dl VLDL Cholesterol, Calc mg/dl HDL Cholesterol mg/dl Cholesterol/HDL Ratio Lipase 138 (73-393) U/L Nasal Screen MRSA (PCR) (Negative) 06/10/18 06/10/18 06/10/18 Range/Units 14:56 14:56 14:40 WBC 10.75 (4.8-10.8) K/uL RBC 4.68 L (4.7-6.1) M/uL Hgb 14.8 (14.0-18.0) g/dL POC Hgb (14.0-18.0) g/dl Hct 43.3 (42-52) % POC Hct (42-52) % MCV 92.5 (80-100) fL MCH 31.6 (25-34) pg MCHC 34.2 (32-36) g/dL RDW Std Deviation 46.3 (36.4-46.3) fL RDW Coeff of Musa 13.7 (11.5-14.5) % Plt Count 322 (130-400) K/uL MPV 9.7 (7.4-10.4) fL Immature Gran % (Auto) 0.5 % Neut % (Auto) 56.1 % Lymph % (Auto) 27.3 % [place] % (Auto) 11.5 % Eos % (Auto) 4.2 % Baso % (Auto) 0.4 % Immature Gran # (Auto) 0.05 H (0.00-0.02) K/uL Neut # (Auto) 6.04 (1.4-6.5) K/uL Lymph # (Auto) 2.93 (1.2-3.4) K/uL [place] # (Auto) 1.24 H (0.11-0.59) K/uL Eos # (Auto) 0.45 (0-0.5) K/uL Baso # (Auto) 0.04 (0-0.2) K/uL PT 10.2 (9.0-12.0) Seconds INR 1.0 (0.9-1.1) APTT 27.8 (21.0-31.0) Seconds PTT Ratio 1.0 Activ Coag Time Kaolin 224 H (94-140) SECONDS POC Sodium (135-144) mEq/L Sodium (136-145) mmol/L POC Potassium (3.3-5.0) mEq/L Potassium (3.5-5.1) mmol/L POC Chloride (101-112) mEq/L Chloride (98-107) mmol/L Carbon Dioxide (21-32) mmol/L POC Total CO2 (24-31) mEq/l Anion Gap (3-11) POC Anion Gap (16-25) mmol/L POC BUN (7-18) mg/dl BUN (7-18) mg/dl Creatinine (0.6-1.4) mg/dl POC Creatinine (0.6-1.3) mg/dl Est Cr Clr Drug Dosing ml/min Est GFR ( Amer) Est GFR (Non-Af Amer) BUN/Creatinine Ratio (10-20) Glucose (70-99) mg/dl POC Glucose (70-99) POC Glucose (other) (70-99) mg/dl Estimat Average Glucose mg/dl Hemoglobin A1c (4.5-5.6) % Calcium (8.5-10.1) mg/dl POC Ioniz Calcium Lucio (1.12-1.32) mmol/l Total Bilirubin (0.2-1) mg/dl AST (15-37) U/L ALT (12-78) U/L Alkaline Phosphatase (45-117) U/L POC Troponin I (0-0.045) ng/ml Troponin I (0-0.045) ng/ml Total Protein (6.4-8.2) gm/dl Albumin (3.4-5.0) gm/dl Globulin (2.5-4.0) gm/dl Albumin/Globulin Ratio (0.9-2) Triglycerides (0-150) mg/dl Cholesterol (0-200) mg/dl LDL Cholesterol, Calc mg/dl VLDL Cholesterol, Calc mg/dl HDL Cholesterol mg/dl Cholesterol/HDL Ratio Lipase (73-393) U/L Nasal Screen MRSA (PCR) (Negative) Medications Administered Current Inpatient Medications Aspirin (Ecotrin Ectab) 81 mg PO [facility] Stop: 07/11/18 08:59 Atorvastatin Calcium (Lipitor) 80 mg PO [facility] Stop: 07/11/18 08:59 Lisinopril (Zestril) 5 mg PO [facility] Stop: 07/11/18 08:59 Lorazepam (Ativan) 1 mg PO ONE PRN; Protocol PRN Reason: EtoH Withdrawal AWSS 6-10 Metoprolol Tartrate (Lopressor) 12.5 mg PO BID [facility] Stop: 07/10/18 20:59 Last Admin: 06/10/18 20:13 Dose: 12.5 mg Documented by: Miscellaneous (Icu Protocol For Hyperglycemia) 1 ea N/A PRN PRN; Protocol PRN Reason: Hyperglycemia Protocol Stop: 06/12/18 16:01 Multivitamins (Multivitamin Tab) 1 tab PO [facility] Stop: 07/11/18 08:59 Ondansetron HCl (Zofran) 4 mg IV Q6H PRN PRN Reason: Nausea And Vomiting Stop: 07/10/18 15:56 Pantoprazole Sodium (Protonix) 40 mg PO [facility] Stop: 07/11/18 08:59 Ticagrelor (Brilinta) 90 mg PO BID [facility] Stop: 07/10/18 22:59 Last Admin: 06/10/18 23:04 Dose: 90 mg Documented by: Resident Activity Tracking Resident Involvement: Resident Care Provided Care Provided: Adult Hospital Medicine (ICU) (1) ST elevation myocardial infarction (STEMI) Involved coronary artery: unspecified coronary artery Qualified Code(s): I21.3 - ST elevation (STEMI) myocardial infarction of unspecified site
[2018-06-11] MEDS ORDERED: PANTOprazole 40 MG TAB PO SCH (09:00)
[2018-06-11] MEDS: METOPROLOL TARTRATE 25 MG TAB PO SCH ×2 (10:06→20:55)
[2018-06-11] MEDS: ASPIRIN 81 MG ECTAB PO SCH (10:06)
[2018-06-11] MEDS: TICAGRELOR 90 MG TAB PO SCH ×2 (10:06→20:55)
[2018-06-11] MEDS: MULTIVITAMIN TAB PO SCH (10:07)
[2018-06-11] MEDS: LISINOPRIL 5 MG TAB PO SCH (10:07)
[2018-06-11] MEDS: ATORVASTATIN 40 MG TAB PO SCH (10:07)
--- NOTE | 2018-06-11 17:23 | Hospitalist Progress Note ---
Date of Service June 11, 2018 Assessment & Plan (1) Acute UT, inferior wall: (2) S/P coronary artery stent placement: This is a 53-year-old male with a PMH of HTN, HLD and tobacco use disorder who presented with chest pain that started this morning and was found to have an acute inferior UT. -Inferior STEMI/acute on chronic early-mid RCA occlusion -S/p CHINMAY x 2 to RCA - stable overall continue Ticagrelor, Aspirin, Metoprolol, Lipitor, Lisinopril -Still with diffuse ostial/proximal LAD 70-80%. Possible stent to LAD before discharge (3) HTN (hypertension): stable monitor (4) HLD (hyperlipidemia): LDL 118 TG 157 Lipitor started (5) Tobacco use disorder: Has smoked 0.25-1 ppd of cigarettes for the past 30 years -Discussed importance of cessation, patient is agreeable to try (6) Heavy alcohol use: Drinks 2-5 beers nightly, last drink 3 days ago -At risk protocol PRN for withdrawal - no signs of alcohol withdrawal at this time monitor Code status: FULL PCP: No PCP. Will need to establish care with PCP upon discharge. Follows with Dr. Gilmore (cardio) in [place]. Dispo: anticipate d/c home when cleared by Cardiology, medically stable Subjective ff up for STEMI seen resting in bed, comfortable denies chest pain, dyspnea, dizziness, palpitations feels tired no other symptoms Physical Exam Vital Signs (Past 24 Hours): Last Vital Signs Temp 36.8 C 06/11/18 16:01 Pulse 63 06/11/18 16:01 Resp 16 06/11/18 16:01 BP 105/71 06/11/18 16:01 Pulse Ox 96 06/11/18 16:01 Physical Exam: General- oriented x 3, not in distress, speaks in sentences w ith no effort or accessory muscle use Eyes- anicteric Neck- no JVD Lungs- clear breath sounds bilaterally, no rales/wheezes Heart- normal rate, regular rhythm; no murmurs Abdomen- normal bowel sounds, nondistended, soft, nontender Extremities- no pretibial edema, no calf tenderness Neuro- alert, oriented x 3; no gross focal neurologic deficits Skin- warm & dry Results & Data Laboratory Results Laboratory Results - last 24 hr 06/10/18 06/10/18 06/10/18 16:16 21:52 21:53 WBC RBC Hgb Hct MCV MCH MCHC RDW Std Deviation RDW Coeff of Musa Plt Count MPV Immature Gran % (Auto) Neut % (Auto) Lymph % (Auto) [place] % (Auto) Eos % (Auto) Baso % (Auto) Immature Gran # (Auto) Neut # (Auto) Lymph # (Auto) [place] # (Auto) Eos # (Auto) Baso # (Auto) Sodium Potassium Chloride Carbon Dioxide Anion Gap BUN Creatinine Est Cr Clr Drug Dosing Est GFR ( Amer) Est GFR (Non-Af Amer) BUN/Creatinine Ratio Glucose POC Glucose 99 Estimat Average Glucose Hemoglobin A1c Calcium Troponin I 39.800 H* Triglycerides Cholesterol LDL Cholesterol, Calc VLDL Cholesterol, Calc HDL Cholesterol Cholesterol/HDL Ratio Nasal Screen MRSA (PCR) Negative 06/11/18 06/11/18 06/11/18 04:22 04:22 04:22 WBC 11.34 H RBC 4.05 L Hgb 12.7 L Hct 37.5 L MCV 92.6 MCH 31.4 MCHC 33.9 RDW Std Deviation 46.6 H RDW Coeff of Musa 13.7 Plt Count 261 MPV 9.6 Immature Gran % (Auto) 0.4 Neut % (Auto) 61.2 Lymph % (Auto) 23.7 [place] % (Auto) 10.7 Eos % (Auto) 3.7 Baso % (Auto) 0.3 Immature Gran # (Auto) 0.04 H Neut # (Auto) 6.95 H Lymph # (Auto) 2.69 [place] # (Auto) 1.21 H Eos # (Auto) 0.42 Baso # (Auto) 0.03 Sodium 139 Potassium 3.9 Chloride 108 H Carbon Dioxide 27 Anion Gap 4.0 BUN 14 Creatinine 0.90 Est Cr Clr Drug Dosing 93.3 Est GFR ( Amer) 111.8 Est GFR (Non-Af Amer) 96.5 BUN/Creatinine Ratio 15.1 Glucose 97 POC Glucose Estimat Average Glucose 120 Hemoglobin A1c 5.8 H Calcium 7.9 L D Troponin I 33.500 H* Triglycerides 157 H Cholesterol 192 LDL Cholesterol, Calc 118 VLDL Cholesterol, Calc 31 HDL Cholesterol 43 Cholesterol/HDL Ratio 5 Nasal Screen MRSA (PCR)
--- NOTE | 2018-06-11 17:26 | Cardiology Progress Note ---
Date of Service June 11, 2018 Assessment & Plan (1) ST elevation myocardial infarction (STEMI): 2. Severe proximal LAD disease 3. Mild LV dysfunction, EF 45-50% with inferior wall motion of normality 4. Dyslipidemia 5. Anemia 6. Ventricular ectopy Patient large chest pain-free. Hemodynamically and electrically stable. Troponin peaked and LV function largely preserved. No significant access site complications. Continue dual antiplatelet therapy with aspirin, Brilinta Continue current beta-bk, CHRISTINE inhibitor Continue high intensity statin Plan for staged PCI of LAD tomorrow Appreciate hospital medicine and ICU team care. Subjective Denies recurrent chest pain. Denies shortness of breath. 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 Telemetry reviewno significant arrhythmia Review of Systems 10 point review of systems was completed and was otherwise negative unless stated in HPI Physical Exam Vital Signs (Past 24 Hours): Last Vital Signs Temp 36.8 C 06/11/18 16:01 Pulse 63 06/11/18 16:01 Resp 16 06/11/18 16:01 BP 105/71 06/11/18 16:01 Pulse Ox 96 06/11/18 16:01 Physical Exam: General: Comfortable, no acute distress Eyes: Sclerae anicteric, extraocular movements intact HENT: Oropharynx clear mucous membranes moist Lungs: Clear to auscultation bilaterally, no rhonchi or wheezes Cardiac: Regular rate and rhythm, no murmurs, rubs or gallops. Vascular: Right radial artery access site with mild ecchymosis, no hematoma. Distal pulse and sensation intact. Abdomen: Soft, nontender, nondistended, positive bowel sounds. Extremities: Well perfused, no peripheral edema Skin: No rashes or lesions. Neuro: Nonfocal Psych: Alert orient x3, normal affect and mood (1) ST elevation myocardial infarction (STEMI) Involved coronary artery: unspecified coronary artery Qualified Code(s): I21.3 - ST elevation (STEMI) myocardial infarction of unspecified site
[2018-06-12 05:01] LABS: Hematocrit (blood only) 39.8 % (42-52); Hemoglobin 13.3 g/dL (14.0-18.0); Mean Corpuscular Hgb Conc 33.4 g/dL (32-36); Mean Corpuscular Volume 92.8 fL (80-100); Mean Platelet Volume 9.8 fL (7.4-10.4); Platelet Count 251 K/uL (130-400); RDW Coefficient of Variation 13.5 % (11.5-14.5); Red Blood Count 4.29 M/uL (4.7-6.1); White Blood Count 9.65 K/uL (4.8-10.8)
[2018-06-12 05:27] LABS: BUN Creatinine Ratio 14.2 (10-20); Calcium 8.3 mg/dl (8.5-10.1); Creatinine Clr Calc Pharmacy 93.3 ml/min; Est GFR (African American) 111.8; Est GFR (Non-African American) 96.5; Phosphorus 3.1 mg/dl (2.5-4.9); Potassium 3.8 mmol/L (3.5-5.1)
--- NOTE | 2018-06-12 08:07 | Critical Care Progress Note ---
Date of Service June 12, 2018 Assessment & Plan (1) Admitted to intensive care unit: Reason Critically Ill: 53-year-old male here for acute inf stemi s/p PTCA with DESx2 to the RCA plan for repeat cath today to stent remaining vessels. Past medical history significant for EtOH abuse, HTN, HLD, Current Smoker. Neuro: -CAM ICU: NEGATIVE -Hx of Heavy EtOH use, ciwa -no si/sx of EtOH withdrawal Cardiac: -acute inf stemi s/p PTCA with DESx2 to the RCA -70% stenosis of the LAD for cath with Dr. Pedro today -Echo EF 45-50%, akinesis of the base and septal area -trop down trending -prn ECG chest pain -Monitor tele Respiratory: -Smoking Cessation -O2 prn GI: -Heart Healthy diet RENAL/LYTES: -No significant electrolyte derangement. -Replace lytes as needed. -Cr stable at 0.90 ENDO: -ICU hyperglycemia protocol HEME: -HGB 12.7 down from 14.8 pre op, no si/sx of anemia, or bleed -Today HGB 13.3 -Continue to trend CBC ID: -No concerns for infection at this point. -Monitor fever curve. -Leukocytosis resolving 2/2 to recent surgical procedure INTEGUMENTARY: -radial site clean dry and intact LINES/IV ACCESS: -PIVs x2 intact. DVT PROPHYLAXIS: - Ambulation Dispo:likely tx to pcu s/p recovery from cath Thank you for allowing us to be part of this patient's care. Please refer to Dr. Soriano's documentation for any further recommendations. (2) ST elevation myocardial infarction (STEMI): (3) Acute OR, inferior wall: (4) S/P coronary artery stent placement: (5) HTN (hypertension): (6) HLD (hyperlipidemia): (7) Heavy alcohol use: (8) Tobacco use disorder: Supervising Physician Co-Signing Physician Notes Reason Critically Ill: 53-year-old male with acute inferior STEMI status post PTCA with CHINMAY x2 to the RCA. NEURO - * CAM ICU: NEGATIVE * Heavy EtOH Use: * CIWA protocol in place. CARDIAC/VASCULAR - * Acute Inferior STEMI s/p PTCA w/ DESx2 to the RCA: * Plan cardiac cath for LAD * EKG: * Pre Cath - NSR 75bpm w/ ST elevations in inferior leads. QTc 434ms. * Post Cath - NSR 70bpm w/ T-wave inversions in III/aVF, Resolve of previous inferior ST Elevations. QTc 432ms. * Monitor on telemetry. RESPIRATORY - * Significant Smoking history: * Encourage smoking cessation. * Supplemental O2 PRN. GI/NUTRITION - * AHA Diet. * Prophylaxis: Protonix RENAL/LYTES - * No significant electrolyte derangements. - * No concerns at this time. ENDO - * No h/o DM or Thyroid Dz. * BSGs per unit protocol. ISS --> gtt per unit policy. HEME - * Stable H&H: ID - * No c/o infectious contribution at this time. LINES/IV ACCESS - * PIVs x2 DVT PROPHYLAXIS - * SCDs, patient ambulatory low risk for DVT Subjective Pt doing well this morning in no acute distress, no acute events overnight. Tolerating diet, voiding, stooling, and sleeping appropriately. Has been NPO since midnight for follow up procedure this afternoon. Physical Exam Vital Signs (Past 24 Hours): Last Vital Signs Temp 37 C 06/12/18 04:00 Pulse 63 06/12/18 06:01 Resp 13 06/12/18 06:01 BP 95/58 L 06/12/18 06:01 Pulse Ox 97 06/12/18 06:01 Physical Exam: Gen: NAD, WD/WN ENMT: EOMI, AT/NC Neck: Trachea midline, normal to visual inspection Resp: CTAB/L Cards: RRR, did not appreciate any MRG. Nl S1/S2 GI: Soft, non distended, nontender. Tolerating diet MSK: Moves all extremities Skin: Radial site clean dry and intact Psych: AAOx3, gaurded, no si/sx of EtOH withdrawal Results & Data Laboratory Results 06/12/18 04:32 06/12/18 04:32 06/12/18 06/12/18 Range/Units 04:32 04:32 WBC 9.65 (4.8-10.8) K/uL RBC 4.29 L (4.7-6.1) M/uL Hgb 13.3 L (14.0-18.0) g/dL Hct 39.8 L (42-52) % MCV 92.8 (80-100) fL MCH 31.0 (25-34) pg MCHC 33.4 (32-36) g/dL RDW Std Deviation 46.0 (36.4-46.3) fL RDW Coeff of Musa 13.5 (11.5-14.5) % Plt Count 251 (130-400) K/uL MPV 9.8 (7.4-10.4) fL Sodium 138 (136-145) mmol/L Potassium 3.8 (3.5-5.1) mmol/L Chloride 108 H (98-107) mmol/L Carbon Dioxide 28 (21-32) mmol/L Anion Gap 2.0 L (3-11) BUN 13 (7-18) mg/dl Creatinine 0.90 (0.6-1.4) mg/dl Est Cr Clr Drug Dosing 93.3 ml/min Est GFR ( Amer) 111.8 Est GFR (Non-Af Amer) 96.5 BUN/Creatinine Ratio 14.2 (10-20) Glucose 95 (70-99) mg/dl Calcium 8.3 L (8.5-10.1) mg/dl Phosphorus 3.1 (2.5-4.9) mg/dl Magnesium 2.0 (1.8-2.4) mg/dl Medications Administered Current Inpatient Medications Aspirin (Ecotrin Ectab) 81 mg PO [facility] Stop: 07/11/18 08:59 Last Admin: 06/12/18 10:00 Dose: 81 mg Documented by: Atorvastatin Calcium (Lipitor) [facility] [place] Stop: 07/11/18 08:59 Last Admin: 06/12/18 09:59 Dose: 80 mg Documented by: Lisinopril (Zestril) 5 [facility] [place] Stop: 07/11/18 08:59 Last Admin: 06/12/18 10:00 Dose: 5 mg Documented by: Lorazepam (Ativan) 1 mg PO ONE PRN; Protocol PRN Reason: EtoH Withdrawal AWSS 6-10 Metoprolol Tartrate (Lopressor) 12.5 mg PO BID [facility] Stop: 07/10/18 20:59 Last Admin: 06/12/18 09:59 Dose: 12.5 mg Documented by: Miscellaneous (Icu Protocol For Hyperglycemia) 1 ea N/A PRN PRN; Protocol PRN Reason: Hyperglycemia Protocol Stop: 06/12/18 16:01 Multivitamins (Multivitamin Tab) 1 tab PO QAM [facility] Stop: 07/11/18 08:59 Last Admin: 06/12/18 10:00 Dose: 1 tab Documented by: Ondansetron HCl (Zofran) 4 mg IV Q6H PRN PRN Reason: Nausea And Vomiting Stop: 07/10/18 15:56 Ticagrelor (Brilinta) 90 mg PO BID [facility] Stop: 07/10/18 22:59 Last Admin: 06/12/18 09:59 Dose: 90 mg Documented by: Resident Activity Tracking Resident Involvement: Resident Care Provided Care Provided: Adult Hospital Medicine (ICU ) (1) ST elevation myocardial infarction (STEMI) Involved coronary artery: unspecified coronary artery Qualified Code(s): I21.3 - ST elevation (STEMI) myocardial infarction of unspecified site
[2018-06-12] MEDS: TICAGRELOR 90 MG TAB PO SCH ×2 (09:59→19:42)
[2018-06-12] MEDS: METOPROLOL TARTRATE 25 MG TAB PO SCH ×2 (09:59→19:42)
[2018-06-12] MEDS: ATORVASTATIN 40 MG TAB PO SCH (09:59)
[2018-06-12] MEDS: ASPIRIN 81 MG ECTAB PO SCH (10:00)
[2018-06-12] MEDS: LISINOPRIL 5 MG TAB PO SCH (10:00)
[2018-06-12] MEDS: MULTIVITAMIN TAB PO SCH (10:00)
[2018-06-12] MEDS ORDERED: fentaNYL citrate 100 MCG/2 ML VIAL ONE ×2 (13:50→14:52)
[2018-06-12] MEDS ORDERED: NiCARDipine HCL INJ 2.5 MG/ML 10 ML AMP ONE (13:50)
[2018-06-12] MEDS ORDERED: HEPARIN (PORCINE) 1000 UNIT/ML 10 ML (CATH LAB USE ONLY) ONE (13:50)
[2018-06-12] MEDS ORDERED: MIDAZOLAM HCL 1 MG/ML 2ML VIAL ONE ×2 (13:50→14:13)
[2018-06-12] MEDS ORDERED: NITROGLYCERIN/D5W 100MCG/ML 20ML SYR ONE (13:51)
--- NOTE | 2018-06-12 14:57 | Cardiology Progress Note ---
Date of Service June 12, 2018 Assessment & Plan (1) ST elevation myocardial infarction (STEMI): 2. Severe proximal LAD disease 3. Mild LV dysfunction, EF 45-50% with inferior wall motion of normality 4. Dyslipidemia 5. Anemia 6. Ventricular ectopy Patient chest pain-free. Hemodynamically and electrically stable. Continue dual antiplatelet therapy with aspirin, Brilinta Continue current beta-bk, CHRISTINE inhibitor. Can change metoprolol tartrate to Toprol-XL at discharge Continue high intensity statin Plan for staged PCI today Subjective Denies recurrent chest pain. Denies shortness of breath. Telemetry reviewno significant arrhythmia Physical Exam Vital Signs (Past 24 Hours): Last Vital Signs Temp 36.7 C 06/12/18 12:00 Pulse 82 06/12/18 13:00 Resp 12 06/12/18 13:00 BP 108/73 06/12/18 12:00 Pulse Ox 93 06/12/18 13:00 Physical Exam: General: Comfortable, no acute distress Lungs: Clear to auscultation bilaterally, no rhonchi or wheezes Cardiac: Regular rate and rhythm, no murmurs, rubs or gallops. Vascular: Mild ecchymosis at right radial artery access site Abdomen: Soft, nontender, nondistended, positive bowel sounds. Extremities: Well perfused, no peripheral edema Skin: No rashes or lesions. Neuro: Nonfocal Psych: Alert orient x3, normal affect and mood (1) ST elevation myocardial infarction (STEMI) Involved coronary artery: unspecified coronary artery Qualified Code(s): I21.3 - ST elevation (STEMI) myocardial infarction of unspecified site
--- NOTE | 2018-06-12 14:59 | Pre Anesthesia Assessment ---
Date of Service June 12, 2018 Pre Sedation Assessment Vital Signs Temp Pulse Pulse Resp BP BP Pulse Ox 06/12/18 13:00 82 12 93 06/12/18 12:00 36.7 C 64 16 108/73 94 06/12/18 10:00 70 13 105/72 99 06/12/18 09:00 60 16 95 06/12/18 08:00 36.7 C 69 16 109/74 95 06/12/18 07:00 62 13 115/77 94 06/12/18 06:01 63 13 95/58 L 97 06/12/18 06:00 63 14 95/58 L 97 06/12/18 05:00 57 L 14 96 06/12/18 04:00 37 C 60 14 84/52 L 94 06/12/18 03:00 69 18 95 06/12/18 02:00 67 17 89/56 L 99 06/12/18 01:00 59 L 15 95 06/12/18 00:00 36.8 C 63 17 119/78 99 06/11/18 23:00 66 0 L 96 06/11/18 22:00 66 15 114/67 96 06/11/18 21:00 81 17 97 06/11/18 20:00 36.8 C 70 64 16 118/72 96 06/11/18 19:01 78 14 120/73 96 06/11/18 19:00 95 H 21 94 06/11/18 18:01 78 15 111/80 96 06/11/18 17:22 74 15 105/65 96 06/11/18 16:01 36.8 C 63 16 105/71 96 06/11/18 15:01 64 12 103/68 96 Cardiovascular RRR, no murmur, no edema Respiratory normal respiratory effort, lungs clear to auscultation Pre-Sedation Airway Assessment Smoking Status: Current every day smoker Hx Sleep Apnea: No Hx Difficult Intubation: No Short, Thick Neck: No Thyromental Distance: > or= 3.5 Finger Breadths Oral Cavity: + WNL Mallampati Class: III ASA: ASA3 NPO Status Date of Last Intake of Fluids: 06/12/18 Time of Last Intake of Fluids: 08:00 Last Oral Intake of Fluids Comment: sip with meds Date of Last Intake of Solid Food: 06/11/18 Procedure Planning Contraindications for Sedation: none Current Medications Reviewed: Yes Notes The planned sedation has been discussed with the patient. Informed Consent was obtained. I have identified the patient, determined the appropriateness of sedation and have assessed the patient immediately prior to the procedure. All medicine(s) and interventions are by my order.
--- NOTE | 2018-06-12 15:00 | Post Anesthesia Assessment ---
Date of Service June 12, 2018 Post Sedation Assessment Vital Signs Temp Pulse Pulse Resp BP BP Pulse Ox 06/12/18 13:00 82 12 93 06/12/18 12:00 36.7 C 64 16 108/73 94 06/12/18 10:00 70 13 105/72 99 06/12/18 09:00 60 16 95 06/12/18 08:00 36.7 C 69 16 109/74 95 06/12/18 07:00 62 13 115/77 94 06/12/18 06:01 63 13 95/58 L 97 06/12/18 06:00 63 14 95/58 L 97 06/12/18 05:00 57 L 14 96 06/12/18 04:00 37 C 60 14 84/52 L 94 06/12/18 03:00 69 18 95 06/12/18 02:00 67 17 89/56 L 99 06/12/18 01:00 59 L 15 95 06/12/18 00:00 36.8 C 63 17 119/78 99 06/11/18 23:00 66 0 L 96 06/11/18 22:00 66 15 114/67 96 06/11/18 21:00 81 17 97 06/11/18 20:00 36.8 C 70 64 16 118/72 96 06/11/18 19:01 78 14 120/73 96 06/11/18 19:00 95 H 21 94 06/11/18 18:01 78 15 111/80 96 06/11/18 17:22 74 15 105/65 96 06/11/18 16:01 36.8 C 63 16 105/71 96 06/11/18 15:01 64 12 103/68 96 Recovery Score Activity: Moves 4 extremities Respiration: Deep Breath/Cough Circulation: +/-20% PreAnes Value Consciousness: Fully Awake Oxygen Saturation: O2 needed for >90% Discharge Sedation Level of Care: Fast Track Phase II Post Sedation Plan On clinical assessment, the patient appears to have tolerated the sedation without complications. Patient is recovering as anticipated. Patient will continue to be monitored by nursing and may be discharged when sedation discharge criteria are met per below protocol. Upon Completions of procedure and additional 15 minutes continue every 5 minute vital signs and the P.A.R. score; then discharge to a Phase I or Fast Track to Phase II per the following guidelines: * Discharge Patient to appropriate Phase II area if PAR is 8 or greater or return to pre- procedure baseline. The post - procedure orders will be as directed. * If PAR score is less than 8 or not return to pre-procedure baseline then patient will follow Phase I monitoring till PAR is reached for Phase II. The Phase I may be done in procedure room or may call to secure a Phase I area. * If naloxone or flumazenil are used for reversal, hold in Phase I for continued monitoring from when last reversal dose was given for a minimum of 60 minutes or longer pending the nurse and/or physician discretion of patient condition before discharge to Phase II. Please call the Sedation Physician to re-evaluate and complete post-note for discharge to Phase II area. Do NOT discharge from procedure sedation or Phase 1 until post- sedation evaluation note is complete by procedure /sedation MD Sedation Discharge Instructions to be given to the patient at discharge to home.
--- NOTE | 2018-06-12 15:01 | Cardiac Catheterization ---
Cardiac Cath Procedure Full Procedure Date June 12, 2018 Pre-Procedure Diagnosis Pre-Procedure Diagnosis: CAD AUC Score AUC Score: 7 Post-Procedure Diagnosis Post-Procedure Diagnosis: Severe CAD and Successful PCI Procedure(s) Performed Procedure(s) Performed: Coronary Angiography, Drug Eluting Stent and IVUS Bi Tri Operator Jadiel Pedro MD Real Property Appraiser(s) Marybel Estimated Blood Loss Estimated Blood Loss: 15 Medication(s) Medication(s): Fentanyl, Heparin, Lidocaine 1%, Nicardipine, Nitroglycerin and Versed Summary of Findings Indication: Staged PCI of proximal LAD Access: 6 Fr right radial artery Catheters: EBU 3.75 guide Findings: For full details of patient's coronary angiography please see cath report dictated from 10/2018. Briefly patient presented with inferior STEMI and underwent PCI with 2 drug-eluting stents placed to RCA. At that time was noted to have severe proximal LAD disease and patient brought back for staged PCI of LAD. -- PCI of LAD-- Antithrombotic therapy: Heparin, ticagrelor Procedure: Left main cannulated with EBU 3.75 guide BMW wire passed across lesion into distal vessel IVUS used to assess extent of proximal/mid LAD disease. Found to have severe diffuse disease extending from ostium into mid segment, minimal luminal area 2.4 mm. Proximal LAD dilated with 2.5 compliant balloon Pro-water wire placed into circumflex Ostial/proximal LAD stented with 3.0 x 34 mm Milo drug-eluting stent Stent post-dilated with 3.5 noncompliant balloon IC vasodilators administered for spasm IVUS confirmed well expanded, well apposed stent with no apparent coronary complications. Post procedure STEPHANIE 3 flow, stent well expanded with minimal residual stenosis and no apparent cardiac complications. Arterial Closure: TR band Summary: 1. Successful PCI of ostial to mid LAD with single drug-eluting stent (3.0 x 34 mm Rigo, postdilated with 3.5 NC). Recommendations: Return to PCU for continued monitoring Continue dual-antiplatelet therapy for at least 1 year. Continue beta-bk, CHRISTINE, statin Cardiac rehab on discharge From a cardiac standpoint likely home tomorrow. Hemodynamics Rest Ao:: 104/60/82 Final Ao: 109/60/82 LV: Recommendations Recommendations: PCI without planned CABG Specimens Specimens: None Radiation Exposure (mGy) 1427 Contrast (mls) 80 Fluids (cc crystalloids) Fluids (cc crystalloids): 90 Drains Drains: None Anesthesia Moderate Procedural Complication(s) None Disposition ICU ACC Data: Spinner Continuous Cardiac Status Clinical evaluation leading to the procedure CAD Presenation: STEMI Anginal Classification: CCS IV Heart Failure: No Cardiogenic Shock within 24 Hours: No Cardiac Arrest within 24 Hours: No Imaging Studies Past 6 Months: Yes Stress Studies Past 6 Months: No Diagnostic Physicians Name: Jadiel Pedro MD Status: Elective Closure Device Percutaneous Entry Location: Radial Closure Device: Radial Band Recommendations: PCI without planned CABG PCI Indication: Staged PCI Lesion Segment Name: Proximal LAD Culprit Artery: Yes Stenosis Prior to Rx (%): 80 Chronic Total Occlusion: No IVUS: Yes FFR: No Pre-Procedure STEPHANIE Flow: 3 Previously Treated Lesion: No Lesion Complexity: High/C Lesion Length (mm): 30 Thrombus Present: No Bifurcation Lesion: Yes Guidewire Across Lesion: Stenosis Post-Procedure (%): 0 Post-Procedure STEPHANIE Flow: 3 Devices(s) Deployed: Yes Yes Intraprocedure Events Significant Disection: No Perforation: No
[2018-06-12] MEDS ORDERED: SODIUM CHLORIDE 0.9% 1000ML 1,000 ML IV SCH (15:15)
--- NOTE | 2018-06-13 | Hospitalist Progress Note ---
Date of Service June 13, 2018 delayed entry date of service 06/12 Assessment & Plan (1) Acute ME, inferior wall: (2) S/P coronary artery stent placement: This is a 53-year-old male with a PMH of HTN, HLD and tobacco use disorder who presented with chest pain that started this morning and was found to have an acute inferior ME. -Inferior STEMI/acute on chronic early-mid RCA occlusion -S/p CHINMAY x 2 to RCA s/p CHINMAY to LAD - stable overall continue Ticagrelor, Aspirin, Metoprolol, Lipitor, Lisinopril -anticipate d/c next day (3) HTN (hypertension): stable monitor (4) HLD (hyperlipidemia): LDL 118 TG 157 Lipitor 80mg po daily started monitor LFTs (5) Tobacco use disorder: Has smoked 0.25-1 ppd of cigarettes for the past 30 years -Discussed importance of cessation, patient is agreeable (6) Heavy alcohol use: Drinks 2-5 beers nightly, last drink 3 days ago -At risk protocol PRN for withdrawal - no signs of alcohol withdrawal at this time monitor Code status: FULL PCP: No PCP. Will need to establish care with PCP upon discharge. Follows with Dr. Gilmore (cardio) in [place]. Dispo: anticipate d/c home when cleared by Cardiology, medically stable Subjective ff up for STEMI resting in bed, comfortable states he feels tired has mild pain on the right forearm no chest pain, dyspnea, palpitations, dizziness no other symptoms Physical Exam Vital Signs (Past 24 Hours): Last Vital Signs Temp 36.8 C 06/12/18 20:01 Pulse 94 H 06/12/18 20:01 Resp 15 06/12/18 20:01 BP 130/82 06/12/18 20:01 Pulse Ox 99 06/12/18 20:01 Physical Exam: General- oriented x 3, not in distress, speaks in sentences with no effort or accessory muscle use Eyes- anicteric Neck- no JVD Lungs- clear BS BL Heart- normal rate, regular rhythm; no murmurs Abdomen- normal bowel sounds, nondistended, soft, nontender Extremities- no pretibial edema, no calf tenderness right forearm: mild edema, warmth, no bleeding/hematoma Neuro- alert, oriented x 3; no gross focal neurologic deficits Skin- warm & dry Results & Data Laboratory Results Laboratory Results - last 24 hr 06/12/18 06/13/18 13:32 12:10 Activ Coag Time Kaolin 268 H Sodium 139 Potassium 4.1 Chloride 107 Carbon Dioxide 24 Anion Gap 7.0 BUN 11 Creatinine 0.93 Est Cr Clr Drug Dosing 88.2 Est GFR ( Amer) 107.5 Est GFR (Non-Af Amer) 92.7 BUN/Creatinine Ratio 12.2 Glucose 98 Calcium 9.4
[2018-06-13] MEDS: TICAGRELOR 90 MG TAB PO SCH (07:58)
[2018-06-13] MEDS: METOPROLOL TARTRATE 25 MG TAB PO SCH (07:59)
[2018-06-13] MEDS: ATORVASTATIN 40 MG TAB PO SCH (07:59)
[2018-06-13] MEDS: LISINOPRIL 5 MG TAB PO SCH (08:00)
[2018-06-13] MEDS: ASPIRIN 81 MG ECTAB PO SCH (08:00)
[2018-06-13] MEDS: MULTIVITAMIN TAB PO SCH (08:50)
--- NOTE | 2018-06-13 12:28 | Cardiology Progress Note ---
Date of Service June 13, 2018 Assessment & Plan (1) ST elevation myocardial infarction (STEMI): He presented with RCA STEMI and underwent Drug-eluting stent placement x2 on presentation. Mildly reduced LV systolic function on echo. He has not had any further angina. He later had a staged lad PCI. Continue aspirin 81 mg daily indefinitely. Continue Brilinta for at least 1 year. We discussed this at length in detail. He was advised that if he is told to hold his antiplatelet therapies, he should first check with Dr. 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 Continue high-intensity statin therapy, Homer inhibitor, and beta-bk. Cardiac rehabilitation once seen in the office in follow-up. (2) CAD (coronary artery disease), barrow coronary artery: RCA STEMI status post PCI followed by a staged ostial/proximal LAD PCI yesterday. He is able to ambulate in the hallway without angina. He appears euvolemic. Continue dual anti-platelet therapy as outlined above. Continue high-intensity statin therapy, beta-bk, and HOMER-inhibitor. Recommend metoprolol succinate 25 mg once daily on discharge. (3) S/P coronary artery stent placement: Dual anti-platelet therapy as above for RCA and LAD stents. (4) HTN (hypertension): blood pressure well controlled. Continue current regimen but on discharge change metoprolol tartrate to metoprolol succinate 25 mg daily. (5) HLD (hyperlipidemia): Continue high-intensity statin therapy. (6) Tobacco use disorder: Smoking cessation. Disposition: Follow-up with Dr. Pedro in 1-2 weeks in the outpatient setting. Discharge cardiac medications were discussed via telephone with primary hospitalist, Dr. Matute (aspirin, Brilinta, atorvastatin, metoprolol succinate 25 mg daily, lisinopril, and p.r.n. nitroglycerin). Subjective He denies chest pain, angina, shortness of breath, syncope, near-syncope, palpitations, edema, or bleeding. He had not yet walked in the hallway but he has ambulated in his room and tolerated it well. Shortly after our visit, we met in the hallway after he did a lap and he felt well without shortness of breath or chest discomfort. Yesterday he underwent staged PCI of ostial/proximal LAD with a 3 x 34 mm hans CHINMAY, post dilated with 3.5 mm noncompliant balloon. He tolerated the procedure well via right radial artery. Review of systems: As above. Physical Exam Vital Signs (Past 24 Hours): Last Vital Signs Temp 36.9 C 06/13/18 11:33 Pulse 71 06/13/18 11:33 Resp 20 06/13/18 11:33 BP 108/73 06/13/18 11:33 Pulse Ox 98 06/13/18 11:33 Physical Exam: Gen.: No acute distress. Alert and oriented. HEENT: Anicteric sclera. Neck: No JVD. Cardiac: Regular. Normal S1-S2. No murmurs, rubs, or gallops. Pulmonary: Clear to auscultation bilaterally without wheezes, rales, or rhonchi. Abdomen: Soft, nontender, nondistended, with normoactive bowel sounds. No bruits noted. Extremities: No edema or cyanosis. Right forearm with ecchymosis. 2+ right radial pulse. Psychiatric: Affect appears appropriate. Results & Data Laboratory Results Laboratory Results - last 24 hr 06/12/18 13:32 Activ Coag Time Kaolin 268 H Laboratory Results - last 48 hr 06/12/18 06/12/18 06/12/18 04:32 04:32 13:32 WBC 9.65 RBC 4.29 L Hgb 13.3 L Hct 39.8 L MCV 92.8 MCH 31.0 MCHC 33.4 RDW Std Deviation 46.0 RDW Coeff of Musa 13.5 Plt Count 251 MPV 9.8 Activ Coag Time Kaolin 268 H Sodium 138 Potassium 3.8 Chloride 108 H Carbon Dioxide 28 Anion Gap 2.0 L BUN 13 Creatinine 0.90 Est Cr Clr Drug Dosing 93.3 Est GFR ( Amer) 111.8 Est GFR (Non-Af Amer) 96.5 BUN/Creatinine Ratio 14.2 Glucose 95 Calcium 8.3 L Phosphorus 3.1 Magnesium 2.0 Diagnostic Findings Telemetry personally reviewed: Sinus rhythm. No arrhythmia. Echo 06/11/2018: Mildly reduced LV systolic function. EF 45-50%. Base to mid inferior wall akinesis with adjacent basal septal hypokinesis. Mildly dilated RV with normal systolic function. No significant valvular abnormalities reported. Medications Administered Current Inpatient Medications Aspirin (E[facility]rin Ectab) [facility] [place] Stop: 07/11/18 08:59 Last Admin: 06/13/18 08:00 Dose: 81 mg Documented by: Atorvastatin Calcium (Lipitor) 80 mg PO [facility] Stop: 07/11/18 08:59 Last Admin: 06/13/18 07:59 Dose: 80 mg Documented by: Lisinopril (Zestril) 5 mg PO QAM [facility] Stop: 07/11/18 08:59 Last Admin: 06/13/18 08:00 Dose: 5 mg Documented by: Lorazepam (Ativan) 1 mg PO ONE PRN; Protocol PRN Reason: EtoH Withdrawal AWSS 6-10 Metoprolol Tartrate (Lopressor) 12.5 mg PO BID [facility] Stop: 07/10/18 20:59 Last Admin: 06/13/18 07:59 Dose: 12.5 mg Documented by: Multivitamins (Multivitamin Tab) 1 tab PO [facility] Stop: 07/11/18 08:59 Last Admin: 06/13/18 08:50 Dose: Not Given Documented by: Ondansetron HCl (Zofran) 4 mg IV Q6H PRN PRN Reason: Nausea And Vomiting Stop: 07/10/18 15:56 Ticagrelor (Brilinta) 90 mg PO BID [facility] Stop: 07/10/18 22:59 Last Admin: 06/13/18 07:58 Dose: 90 mg Documented by: (1) ST elevation myocardial infarction (STEMI) Involved coronary artery: unspecified coronary artery Qualified Code(s): I21.3 - ST elevation (STEMI) myocardial infarction of unspecified site
[2018-06-13 12:43] LABS: BUN Creatinine Ratio 12.2 (10-20); Calcium 9.4 mg/dl (8.5-10.1); Creatinine Clr Calc Pharmacy 88.2 ml/min; Est GFR (African American) 107.5; Est GFR (Non-African American) 92.7; Potassium 4.1 mmol/L (3.5-5.1)
--- NOTE | 2018-06-13 12:55 | Hospitalist Progress Note ---
Date of Service June 13, 2018 Physical Exam Vital Signs (Past 24 Hours): Last Vital Signs Temp 36.9 C 06/13/18 12:36 Pulse 71 06/13/18 12:36 Resp 20 06/13/18 12:36 BP 108/73 06/13/18 12:36 Pulse Ox 98 06/13/18 12:36
--- NOTE | 2018-06-13 12:56 | Hospitalist Progress Note ---
Date of Service June 13, 2018 Assessment & Plan (1) Acute CT, inferior wall: (2) S/P coronary artery stent placement: This is a 53-year-old male with a PMH of HTN, HLD and tobacco use disorder who presented with chest pain that started this morning and was found to have an acute inferior CT. 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 - stable overall continue Ticagrelor for at least 1 year, Aspirin indefinitely, Metoprolol, Lipitor, Lisinopril PRN Nitro - ff up with PCP next week ff up with Commutator Tester [employer] Dr. Jadiel Pedro in 2 weeks, needs Cardiac Rehab (3) HTN (hypertension): stable monitor (4) HLD (hyperlipidemia): LDL 118 TG 157 Lipitor 80mg po daily started monitor LFTs (5) Tobacco use disorder: Has smoked 0.25-1 ppd of cigarettes for the past 30 years -Discussed importance of cessation, patient is agreeable (6) Heavy alcohol use: Drinks 2-5 beers nightly, last drink 3 days ago -At risk protocol PRN for withdrawal - no signs of alcohol withdrawal at this time monitor Pre DM A1c 5.i8 monitor and ff up closely Code status: FULL PCP: No PCP. Will need to establish care with PCP upon discharge. Follows with Dr. Gilmore (cardio) in [place]. Dispo: d/c home ff up with PCP and Cardio as outlined in DC instructions plan of care discussed with patient in detail, at length he is agreeable and comfortable with plan of care all questions answered Subjective ff up for STEMI resting in bed, comfortable ambulated in the hallways no dizziness, chest pain, dyspnea did get tired easily no other symptoms states he is ready and would like to be discharged today Physical Exam Vital Signs (Past 24 Hours): Last Vital Signs Temp 36.9 C 06/13/18 12:36 Pulse 71 06/13/18 12:36 Resp 20 06/13/18 12:36 BP 108/73 06/13/18 12:36 Pulse Ox 98 06/13/18 12:36 Physical Exam: General- oriented x 3, not in distress, speaks in sentences with no effort or accessory muscle use Eyes- anicteric Neck- no JVD Lungs- clear BS BL Heart- normal rate, regular rhythm; no murmurs Abdomen- normal bowel sounds, nondistended, soft, nontender Extremities- no pretibial edema, no calf tenderness right forearm: edema improve,d no tenderness, no hematoma Neuro- alert, oriented x 3; no gross focal neurologic deficits Skin- warm & dry Results & Data Laboratory Results Laboratory Results - last 24 hr 06/12/18 06/13/18 13:32 12:10 Activ Coag Time Kaolin 268 H Sodium 139 Potassium 4.1 Chloride 107 Carbon Dioxide 24 Anion Gap 7.0 BUN 11 Creatinine 0.93 Est Cr Clr Drug Dosing 88.2 Est GFR ( Amer) 107.5 Est GFR (Non-Af Amer) 92.7 BUN/Creatinine Ratio 12.2 Glucose 98 Calcium 9.4
--- NOTE | 2018-06-13 13:21 | Discharge Summary ---
Date of Service June 13, 2018 Admission HPI Per Admitting Provider This is a 53-year-old male with a PMH of HTN, HLD and tobacco use disorder who presented with chest pain that started this morning. Patient has been experiencing intermittent chest pain over the weekend but it would go away with rest. This morning at work, patient developed worsened chest pain with radiation to back, neck and left arm. Coworker drove him to urgent care, where he had an EKG that was concerning for STEMI and was directed to emergency room. 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 Patient is feeling well post procedure. Denies any chest pain or shortness of breath. Is tolerating dinner without nausea, vomiting or abdominal pain. Denies any previous episodes of chest pain similar to this. Has smoked 0.25-1 ppd of cigarettes for the past 30 years. + family history of CAD, with Dad passing away from UT in late 50s. Denies fever, chills, lightheadedness, headache, chest pain, palpitations, shortness of breath, nausea, vomiting, abdominal pain, dysuria, diarrhea or constipation. Admission Exam Per Admitting Provider Vital Signs (Past 24 Hours): Last Vital Signs Temp 36.7 C 06/10/18 17:28 Pulse 71 06/10/18 17:28 Resp 20 06/10/18 17:28 BP 128/91 06/10/18 17:28 Pulse Ox 96 06/10/18 17:28 Physical Exam: General Appearance: WD/WN, no apparent distress, resting comfortably Head: normocephalic, atraumatic Eyes: normal inspection, PERRL, EOMI ENT: hearing grossly normal, pharynx normal (moist mucous membranes) Neck: supple, no JVD, no adenopathy Respiratory/Chest: lungs clear to auscultation. No wheezes, rales or rhonci. No respiratory distress or accessory muscle use Cardiovascular: regular rate, rhythm, no murmur, normal peripheral pulses Abdomen/GI: normal bowel sounds, soft, non-tender to palpation Extremities/Musculoskelatal: Small R wrist hematoma, no active bleeding. No calf tenderness, normal capillary refill, no pedal edema Neurologic/Psych: alert, normal mood/affect, oriented x 3 Skin: normal color, warm/dry Principal Diagnosis STEMI Discharge Exam Vital Signs (Past 24 Hours): Last Vital Signs Temp 36.9 C 06/13/18 12:36 Pulse 71 06/13/18 12:36 Resp 20 06/13/18 12:36 BP 108/73 06/13/18 12:36 Pulse Ox 98 06/13/18 12:36 Physical Exam: General- oriented x 3, not in distress, speaks in sentences with no effort or accessory muscle use Eyes- anicteric Neck- no JVD Lungs- clear BS BL Heart- normal rate, regular rhythm; no murmurs Abdomen- normal bowel sounds, nondistended, soft, nontender Extremities- no pretibial edema, no calf tenderness right forearm: edema improve,d no tenderness, no hematoma Neuro- alert, oriented x 3; no gross focal neurologic deficits Skin- warm & dry Discharge Data Allergies Allergy/AdvReac Type Severity Reaction Status Date / Time No Known Allergies Unverified 05/20/09 16:12 Consultations 06/10/18 15:14 ED Decision to Admit Stat 06/10/18 16:02 Consult Cardiac Rehabilitation Routine Consult Case Management - Discharge Planning Routine 06/10/18 16:32 Consult Individualized Education Plan Aide Routine 06/11/18 08:04 Consult Cardiology Routine Procedures Performed Operation Date: 06/10/18 14:50 Actual Procedures s Cath, Left with Cors and Vent - Sj Castellon MD p Aspiration/PCI w/CHINMAY for Stemi - Sj Castellon MD s Cineradiography w/Routine Exam - Sj Castellon MD Operation Date: 06/12/18 13:00 Actual Procedures p Drug Eluting Stent SGl Vessel - Sj Castellon MD s IVUS Coronary Single Vessel - Sj Castellon MD s Cineradiography w/Routine Exam - Sj Castellon MD Ordered Studies 06/10/18 14:53 CL Cath Imgs for PACS use only Stat 06/12/18 07:01 CL Cath Imgs for PACS use only Urgent 06/12/18 12:19 US point of care ultrasound Routine Hospital Course (1) Acute UT, inferior wall: (2) S/P coronary artery stent placement: This is a 53-year-old male with a PMH of HTN, HLD and tobacco use disorder who presented with chest pain that started this morning and was found to have an acute inferior UT. 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 - stable overall continue Ticagrelor for at least 1 year, Aspirin indefinitely, Metoprolol, Lipitor, Lisinopril PRN Nitro - ff up with PCP next week ff up with Datastage Consultant [facility]ODR[facility] Dr. Jadiel Castellon in 2 weeks, needs Cardiac Rehab (3) HTN (hypertension): stable monitor (4) HLD (hyperlipidemia): LDL 118 TG 157 Lipitor 80mg po daily started monitor LFTs (5) Tobacco use disorder: Has smoked 0.25-1 ppd of cigarettes for the past 30 years -Discussed importance of cessation, patient is agreeable (6) Heavy alcohol use: Drinks 2-5 beers nightly, last drink 3 days ago -At risk protocol PRN for withdrawal - no signs of alcohol withdrawal at this time monitor Pre DM A1c 5.i8 monitor and ff up closely Code status: FULL PCP: No PCP. Will need to establish care with PCP upon discharge. Follows with Dr. Gilmore (cardio) in [place]. Dispo: d/c home ff up with PCP and Cardio as outlined in DC instructions plan of care discussed with patient in detail, at length he is agreeable and comfortable with plan of care all questions answered Total Time Total Time Spent Total Time Spent (In Minutes): 40 MINS Discharge Plan Discharge Items Patient Disposition: Home - Self-Care Reason For Visit: STEMI Discharge Diagnosis: MYOCARDIAL INFARCTION (HEART ATTACK) Discharge Goals: Diagnostic testing Activity: As commented below Activity Comment: NO HEAVY EXERTION UNTIL CLEARED BY ASSOCIATE PRODUCT MANAGER Lifting: Wait until after follow-up appointment Sexual Activity: Wait until after follow-up appointment Exercise/Sports: Wait until after follow-up appointment Driving/Machine Use Comment: NO DRIVING UNTIL CLEARED BY PRIMARY CARE PHYSICIAN Non-emergency contact: Primary Care Provider and Datastage Consultant Call non-emergency contact if: you have any medication questions, your wound has increased redness, your wound has increased drainage and your wound pain has increased Follow-up/Referrals: PCP,NO [Primary Care Provider] - Diet: Heart Healthy Add Provider Instructions: FOLLOW UP WITH DR. MARY LUTZ IN [facility] ON JUNE 17, 2018Sunday AT 9:25AM. FOLLOW UP WITH ASSOCIATE PRODUCT MANAGER DR. JADIEL CASTELLON IN 2 WEEKS. HIS CLINIC WILL BE CALLING YOU FOR THE APPOINTMENT. IF WITH RECURRENCE OF CHEST PAIN, TAKE 1 NITROSTAT. THEN, IF WITH RELIEF OF CHEST PAIN, CALL PRIMARY CARE PHYSICIAN/ASSOCIATE PRODUCT MANAGER IMMEDIATELY. IF WITHOUT RELIEF WITHIN 3-5 MINUTES, CALL 9--1 IMMEDIATELY. PLEASE REVIEW YOUR NEW MEDICATION LIST AND FOLLOW INSTRUCTIONS CAREFULLY. NO SMOKING, ALCOHOL USE. STAY WELL HYDRATED. . Who to Call and When: Medical Emergencies: If at any time you feel your situation is an emergency, please call 911 immediately. Call 911 immediately or go to your nearest Emergency Room if you experience any of the following: Warning Signs and Symptoms of a Heart Attack * Chest pain that is not relieved by medication * Shortness of breath Home Care: * Take your medications exactly as directed. Don't skip doses. * Remember that recovery after a heart attack takes time. Plan to rest for at lease 4-8 weeks while you recover. Then return to normal activity when your doctor says it's okay. * Ask your doctor about joining a heart rehabilitation program. * Tell your doctor if you are feeling depressed. Feelings of sadness are common after a heart attack, but it is important that you speak to someone if you are feeling overwhelmed by these feelings. * If you are having chest pain, call 911 for an ambulance. Do NOT drive yourself to the hospital. * Ask your family members to learn CPR. * Learn to take your own blood pressure and pulse. Keep a record of your results. Ask your doctor when you should seek emergency medical attention. He or she will tell you which blood pressure reading is dangerous. Lifestyle Changes: * Maintain a healthy weight. Get help to lose any extra pounds. * Cut back on salt. * Limit canned, dried, packaged, and fast foods. * Don't add salt to your food. * Season foods with herbs instead of salt when you cook. * Break the smoking habit. Enroll in a stop-smoking program to improve your chances of success. * Limit fatty foods. * Ask your doctor about having your lipid levels checked regularly. * Build up your activity according to your doctor's recommendation. * Ask your doctor when it's okay to resume sexual activity. * Tell your doctor about any erectile dysfunction (ED) medication you are taking. Some ED medications are not safe if you take certain heart medications. * Try to manage stress. Follow Up: It is important for you to keep your follow up appointments with your medical provider. Prescriptions: New atorvastatin 40 mg Tablet 80 mg PO QAM 30 Days Qty: 60 RF: 1 lisinopril [Zestril] 5 mg Tablet 5 mg PO QAM 30 Days Qty: 30 RF: 1 Brilinta 90 mg Tablet 90 mg PO BID 30 Days Qty: 60 RF: 1 metoprolol succinate 25 mg tablet extended release 24 hr 25 mg PO DAILY 30 Days Qty: 30 RF: 1 nitroglycerin 0.3 mg tablet, sublingual 0.3 mg sublingual UD Qty: 14 RF: 1 Continued aspirin 81 mg Tablet,Delayed Release (Dr/Ec) 81 mg PO DAILY RF: 0 multivitamin Capsule 1 cap PO QAM RF: 0 Discontinued metoprolol succinate [Toprol XL] 50 mg Tablet Extended Release 24 Hr 50 mg PO DAILY RF: 0 Stand-Alone Forms: [facility] Discharge Orders: Discharge Order (Routine); Ordered 06/13/18 Ordered By: Mejia Matute Admission Data Admit Date/Time: 06/10/18 16:31 Attending Provider: Mejia Matute Admit Provider: Sj Castellon Primary Care Provider: PCP,NO Other Providers: Apollo Galloway ; Kevan Soriano ; Sj Castellon Service: Telemetry Other Interventions: Discharge Summary Assessment (RN) Last Done: 06/13/18 12:36 DC Date/Time DO NOT enter until pt leaves facility: 06/13/18 14:07
== END 2018-06-13 14:07 | disposition home or self-care (01) | DRG 247 ==
LOC: ED 14:39 → CC 15:08 → 1E 16:31 → SUATTDRO 16:31 → 2S 06-12 19:09
DX: E78.5 Hyperlipidemia, unspecified; R73.03 Prediabetes; F10.10 Alcohol abuse, uncomplicated; I49.3 Ventricular premature depolarization; Z79.82 Long term (current) use of aspirin; I25.10 Atherosclerotic heart disease of native coronary artery without angina pectoris; F17.210 Nicotine dependence, cigarettes, uncomplicated; D64.9 Anemia, unspecified; I21.19 ST elevation (STEMI) myocardial infarction involving other coronary artery of inferior wall; I10 Essential (primary) hypertension